=== PATIENT | female | born 1995 | race Caucasian/White ===

== ENCOUNTER 2020-01-16 09:41 | Emergency (ER) | payer SELFPAY ==
--- NOTE | 2020-01-16 09:52 | ERPHSYRPT ---
- History of Present Illness Time Seen by Provider: 01/16/20 09:51 Historian: patient, family Exam Limitations: no limitations Physician History: This is a 24-year-old white female who has had intermittent epigastric abdominal pain with associated nausea vomiting and diarrhea. She is had no fever she has no flulike symptoms. She does not have chest pain and she has no shortness of breath. The pain is worse after she eats and in the mornings. She has had no prior abdominal surgeries. She also feels bloated belching and gassy. Patient has not seen a primary care physician for this in the last month. She has had symptoms intermittently for over a month. Timing/Duration: intermittent, worse, other (Over a month) Activities at Onset: none Quality: aching, cramping Abdominal Pain Onset Location: epigastric Pain Radiation: no radiation Severity of Pain-Max: moderate Severity of Pain-Current: moderate Modifying Factors: Improves With: eating (Worsens), vomiting Associated Symptoms: nausea, vomiting Previous symptoms: same symptoms as today Allergies/Adverse Reactions: No Known Drug Allergies Allergy (Unverified 01/16/20 09:56) Travel Risk - International Travel Have you traveled outside of the country in past 3 weeks: No - Coronavirus Screening Are you exhibiting any of the following symptoms?: No Close contact with a COVID-19 positive Pt in past 14-21 Days: No - Review of Systems Constitutional: No Symptoms Eyes: No Symptoms Ears, Nose, & Throat: No Symptoms Respiratory: No Symptoms Cardiac: No Symptoms Abdominal/Gastrointestinal: Abdominal Pain (Epigastric), Nausea, Vomiting Genitourinary Symptoms: No Symptoms Musculoskeletal: No Symptoms Skin: No Symptoms Neurological: No Symptoms Psychological: No Symptoms Endocrine: No Symptoms Hematologic/Lymphatic: No Symptoms Immunological/Allergic: No Symptoms All Other Systems: Reviewed and Negative - Past Medical History Pertinent Past Medical History: No Neurological History: No Pertinent History ENT History: No Pertinent History Cardiac History: No Pertinent History Respiratory History: No Pertinent History Endocrine Medical History: No Pertinent History Musculoskeletal History: No Pertinent History GI Medical History: No Pertinent History History: No Pertinent History Psycho-Social History: No Pertinent History Female Reproductive Disorders: No Pertinent History - Nursing Vital Signs Nursing Vital Signs: Initial Vital Signs Temperature 96.9 F 01/16/20 09:46 Pulse Rate 58 L 01/16/20 09:46 Respiratory Rate 16 01/16/20 09:46 Blood Pressure 125/58 01/16/20 09:46 O2 Sat by Pulse Oximetry 99 01/16/20 09:46 Pain Scale Pain Intensity 4 - Physical Exam General Appearance: mild distress, alert, anxiety Eye Exam: PERRL/EOMI, eyes nml inspection Ears, Nose, Throat Exam: normal ENT inspection, moist mucous membranes Neck Exam: normal inspection, non-tender, supple, full range of motion Respiratory Exam: normal breath sounds, lungs clear, airway intact, No chest tenderness, No respiratory distress Cardiovascular Exam: regular rate/rhythm, normal heart sounds, normal peripheral pulses Gastrointestinal/Abdomen Exam: soft, normal bowel sounds, tenderness (Epigastric), guarding (Mild epigastric), No rebound Pelvic Exam: not done Rectal Exam: not done Back Exam: normal inspection, normal range of motion, No CVA tenderness, No vertebral tenderness Extremity Exam: normal inspection, normal range of motion, pelvis stable Neurologic Exam: alert, oriented x 3, cooperative, credit specialist II-XII nml as tested Skin Exam: normal color, warm, dry Lymphatic Exam: No adenopathy SpO2 Interpretation: normal O2 Delivery: Room Air - Course Nursing assessment & vital signs reviewed: Yes Ordered Tests: Active Orders 24 hr Category Date Time Status Cath for Specimen-Straight STAT Care 01/16/20 12:22 Active IV Insertion STAT Care 01/16/20 09:54 Active ABDOMEN AND PELVIS W/0 CONTRAS [CT] Stat Exams 01/16/20 10:43 Taken AMYLASE Stat Lab 01/16/20 10:05 Completed CBC W DIFF Stat Lab 01/16/20 10:05 Completed CMP Stat Lab 01/16/20 10:05 Completed HCG QUALITATIVE,SERUM Stat Lab 01/16/20 10:00 Completed HCG,QUALITATIVE URINE Stat Lab 01/16/20 Uncollected LIPASE Stat Lab 01/16/20 10:05 Completed Lactic Acid Stat Lab 01/16/20 09:54 Completed UA W/RFX UR CULTURE Stat Lab 01/16/20 12:19 Completed Urine Triage Profile Stat Lab 01/16/20 12:19 Received Medication Summary Discontinued Medications Generic Name Dose Route Start Last Admin Trade Name Freq PRN Reason Stop Dose Admin Famotidine 20 mg 01/16/20 09:54 01/16/20 10:03 Pepcid 20 Mg Vial IV 01/16/20 09:55 20 mg STAT ONE Administration Famotidine Confirm 01/16/20 10:00 Pepcid 20 Mg Vial Administered 01/16/20 10:01 Dose 20 mg IV .STK-MED ONE Hydromorphone HCl 0.5 mg 01/16/20 09:54 01/16/20 10:33 Hydromorphone 1 Mg/Ml Ampule IV 01/16/20 09:55 0.5 mg STAT ONE Administration Hydromorphone HCl Confirm 01/16/20 10:31 Hydromorphone 1 Mg/Ml Ampule Administered 01/16/20 10:32 Dose 1 mg .ROUTE .STK-MED ONE Hydromorphone HCl 0.5 mg 01/16/20 12:14 Hydromorphone 1 Mg/Ml Ampule IV 01/16/20 12:15 STAT ONE Sodium Chloride 1,000 mls @ 999 mls/hr 01/16/20 09:54 01/16/20 10:05 Sodium Chloride 0.9% 1000 Ml IV 01/16/20 10:54 999 mls/hr .Q1H1M STA Administration Sodium Chloride Confirm 01/16/20 10:01 Sodium Chloride 0.9% 1000 Ml Administered 01/16/20 10:02 Dose 1,000 mls @ ud .ROUTE .STK-MED ONE Sodium Chloride 500 mls @ 500 mls/hr 01/16/20 11:34 01/16/20 11:37 Sodium Chloride 0.9% 500 Ml IV 01/16/20 12:33 500 mls/hr .Q1H ONE Administration Sodium Chloride Confirm 01/16/20 11:36 Sodium Chloride 0.9% 500 Ml Administered 01/16/20 11:37 Dose 500 mls @ ud IV .STK-MED ONE Ondansetron HCl 4 mg 01/16/20 09:54 01/16/20 10:03 Zofran 4 Mg/2 Ml Vial IV 01/16/20 09:55 4 mg STAT ONE Administration Ondansetron HCl Confirm 01/16/20 10:00 Zofran 4 Mg/2 Ml Vial Administered 01/16/20 10:01 Dose 4 mg .ROUTE .STK-MED ONE Ondansetron HCl 4 mg 01/16/20 12:14 Zofran 4 Mg/2 Ml Vial IV 01/16/20 12:15 STAT ONE Promethazine HCl 12.5 mg 01/16/20 12:22 01/16/20 12:26 Phenergan 25 Mg Inj IM 01/16/20 12:23 12.5 mg STAT ONE Administration Promethazine HCl Confirm 01/16/20 12:22 Phenergan 25 Mg Inj Administered 01/16/20 12:23 Dose 25 mg .ROUTE .STK-MED ONE Lab/Rad Data: Laboratory Result Diagrams 01/16/20 10:05 01/16/20 10:05 Laboratory Results 01/16/20 01/16/20 01/16/20 Range/Units 12:19 10:05 10:05 WBC 13.9 H (4.0-10.5) K/mm3 RBC 5.42 H (4.1-5.4) M/mm3 Hgb 16.3 H (12.0-16.0) gm/dl Hct 49.1 H (35-47) % MCV 90.6 (78-100) fl MCH 30.1 (26-32) pg MCHC 33.2 (32-36) g/dl RDW 13.2 (11.5-14.0) % Plt Count 237 (150-450) K/mm3 MPV 10.2 (7.5-11.0) fl Gran % 84.2 H (36.0-66.0) % Eos # (Auto) 0.05 (0-0.5) Absolute Lymphs (auto) 1.49 (1.0-4.6) Absolute Monos (auto) 0.63 (0.0-1.3) Lymphocytes % 10.7 L (24.0-44.0) % Monocytes % 4.5 (0.0-12.0) % Eosinophils % 0.4 (0.00-5.0) % Basophils % 0.2 (0.0-0.4) % Absolute Granulocytes 11.73 H (1.4-6.9) Basophils # 0.03 (0-0.4) Sodium 139 (137-145) mmol/L Potassium 3.7 (3.5-5.1) mmol/L Chloride 108 H (98-107) mmol/L Carbon Dioxide 23 (22-30) mmol/L Anion Gap 11.7 (5-15) MEQ/L BUN 12 (7-17) mg/dL Creatinine 0.72 (0.52-1.04) mg/dL Estimated GFR > 60.0 ML/MIN Glucose 145 H (74-106) mg/dL Lactic Acid (0.4-2.0) Calcium 9.7 (8.4-10.2) mg/dL Total Bilirubin 1.90 H (0.2-1.3) mg/dL AST 19 (14-36) U/L ALT 15 (0-35) U/L Alkaline Phosphatase 93 (38-126) U/L Serum Total Protein 7.8 (6.3-8.2) g/dL Albumin 4.6 (3.5-5.0) g/dL Amylase 82 (30-110) U/L Lipase 53 (23-300) U/L Serum , Qual (Negative) Urine Color GILL (YELLOW) Urine Appearance SLIGHTLY CLOUDY (CLEAR) Urine pH 7.0 (5-6) Ur Specific [place] 1.028 (1.005-1.025) Urine Protein 100 (Negative) Urine Ketones SMALL (NEGATIVE) Urine Blood NEGATIVE (0-5) [place] Urine Nitrite NEGATIVE (NEGATIVE) Urine Bilirubin NEGATIVE (NEGATIVE) Urine Urobilinogen 2 (0-1) mg/dL Ur Leukocyte Esterase NEGATIVE (NEGATIVE) Urine WBC (Auto) 3-5 (0-5) /HPF Urine RBC (Auto) NONE (0-2) /HPF U Hyaline Cast (Auto) 3-5 (0-2) /LPF U Epithel Cells (Auto) RARE (FEW) /HPF Urine Bacteria (Auto) RARE (NEGATIVE) /HPF Urine Mucus (Auto) MANY (NEGATIVE) /HPF Urine Culture Reflexed NO (NO) Urine Glucose NEGATIVE (NEGATIVE) mg/dL 01/16/20 01/16/20 Range/Units 10:00 09:54 WBC (4.0-10.5) K/mm3 RBC (4.1-5.4) M/mm3 Hgb (12.0-16.0) gm/dl Hct (35-47) % MCV (78-100) fl MCH (26-32) pg MCHC (32-36) g/dl RDW (11.5-14.0) % Plt Count (150-450) K/mm3 MPV (7.5-11.0) fl Gran % (36.0-66.0) % Eos # (Auto) (0-0.5) Absolute Lymphs (auto) (1.0-4.6) Absolute Monos (auto) (0.0-1.3) Lymphocytes % (24.0-44.0) % Monocytes % (0.0-12.0) % Eosinophils % (0.00-5.0) % Basophils % (0.0-0.4) % Absolute Granulocytes (1.4-6.9) Basophils # (0-0.4) Sodium (137-145) mmol/L Potassium (3.5-5.1) mmol/L Chloride (98-107) mmol/L Carbon Dioxide (22-30) mmol/L Anion Gap (5-15) MEQ/L BUN (7-17) mg/dL Creatinine (0.52-1.04) mg/dL Estimated GFR ML/MIN Glucose (74-106) mg/dL Lactic Acid 1.8 (0.4-2.0) Calcium (8.4-10.2) mg/dL Total Bilirubin (0.2-1.3) mg/dL AST (14-36) U/L ALT (0-35) U/L Alkaline Phosphatase (38-126) U/L Serum Total Protein (6.3-8.2) g/dL Albumin (3.5-5.0) g/dL Amylase (30-110) U/L Lipase (23-300) U/L Serum , Qual NEGATIVE (Negative) Urine Color (YELLOW) Urine Appearance (CLEAR) Urine pH (5-6) Ur Specific [place] (1.005-1.025) Urine Protein (Negative) Urine Ketones (NEGATIVE) Urine Blood (0-5) [place] Urine Nitrite (NEGATIVE) Urine Bilirubin (NEGATIVE) Urine Urobilinogen (0-1) mg/dL Ur Leukocyte Esterase (NEGATIVE) Urine WBC (Auto) (0-5) /HPF Urine RBC (Auto) (0-2) /HPF U Hyaline Cast (Auto) (0-2) /LPF U Epithel Cells (Auto) (FEW) /HPF Urine Bacteria (Auto) (NEGATIVE) /HPF Urine Mucus (Auto) (NEGATIVE) /HPF Urine Culture Reflexed (NO) Urine Glucose (NEGATIVE) mg/dL - Progress Progress: improved, pain not gone completely, re-examined Progress Note: 01/16/20 11:54 CAT scan of the abdomen pelvis reveals a few faint punctate densities developing within the right kidney. No sizable calculus or obstructive uropathy identified. The appendix is normal and there is no cholelithiasis. Counseled pt/family regarding: lab results, diagnosis, need for follow-up, rad results - Departure Departure Disposition: Home Clinical Impression: Abdominal pain, Nausea & vomiting Condition: Stable Critical Care Time: No Referrals: DOCTOR,NO FAMILY [Primary Care Provider] - Additional Instructions: Drink plenty of clear liquids prior to advancing your diet. Avoid fatty greasy spicy foods. Follow-up with a primary care physician to obtain an ultrasound and other further management. Please review the list of providers we have provided you. Prescriptions: Ondansetron ODT 4 MG [Zofran Odt 4 mg] 4 mg PO Q6H PRN PRN #10 tab.rapdis PRN Reason: Vomiting Hydrocodone/APAP 5-325 Tab^^^ [[place] 5-325 Tablet^^^] 1 tab PO Q8H PRN PRN #6 tablet MDD 3 PRN Reason: Pain Famotidine 20 mg [Pepcid 20 MG] 20 mg PO DAILY #10 tablet
[2020-01-16] MEDS ORDERED: Zofran 4 MG/2 ML VIAL IV ONE ×2 (09:54→12:14)
[2020-01-16] MEDS ORDERED: Sodium Chloride 0.9% 1000 ML 1,000 ML IV STA (09:54)
[2020-01-16] MEDS ORDERED: Pepcid 20 MG VIAL IV ONE ×2 (09:54→10:00)
[2020-01-16] MEDS ORDERED: Hydromorphone 1 mg/ml Ampule IV ONE ×2 (09:54→12:14)
[2020-01-16] MEDS ORDERED: Zofran 4 MG/2 ML VIAL ONE (10:00)
[2020-01-16] MEDS ORDERED: Sodium Chloride 0.9% 1000 ML 1,000 ML ONE (10:01)
[2020-01-16 10:14] LABS: Absolute Neutrophil Ct (ANC) 11.73 (1.4-6.9); BASOPHIL % 0.2 % (0.0-0.4); Basophil (Absolute #) 0.03 (0-0.4); Eosinophil % 0.4 % (0.00-5.0); Eosinophil (Absolute #) 0.05 (0-0.5); Hematocrit 49.1 % (35-47); Hemoglobin 16.3 gm/dl (12.0-16.0); Lymphocyte (Absolute #) 1.49 (1.0-4.6); Lymphocytes % 10.7 % (24.0-44.0); Mean Cell Volume 90.6 fl (78-100); Mean Corpuscular Hemoglobin 30.1 pg (26-32); Mean Corpuscular Hgb Concent. 33.2 g/dl (32-36); Mean Platelet Volume 10.2 fl (7.5-11.0); Monocyte (Absolute #) 0.63 (0.0-1.3); Monocytes % 4.5 % (0.0-12.0); Neutrophil % 84.2 % (36.0-66.0); Platelet Count 237 K/mm3 (150-450); Red Blood Count 5.42 M/mm3 (4.1-5.4); Red Cell Distribution Width 13.2 % (11.5-14.0); White Blood Count 13.9 K/mm3 (4.0-10.5)
[2020-01-16 10:23] LABS: ALBUMIN 4.6 g/dL (3.5-5.0); ALKALINE PHOSPHATASE 93 U/L (38-126); AMYLASE 82 U/L (30-110); ANION GAP 11.7 MEQ/L (5-15); BLOOD UREA NITROGEN 12 mg/dL (7-17); CHLORIDE 108 mmol/L (98-107); Calcium 9.7 mg/dL (8.4-10.2); Carbon Dioxide 23 mmol/L (22-30); Creatinine 1 0.72 mg/dL (0.52-1.04); Glucose 145 mg/dL (74-106); LIPASE 53 U/L (23-300); Potassium 3.7 mmol/L (3.5-5.1); SGOT/AST 19 U/L (14-36); SGPT/ALT 15 U/L (0-35); SODIUM 139 mmol/L (137-145); Total Protein 7.8 g/dL (6.3-8.2)
[2020-01-16] MEDS ORDERED: Hydromorphone 1 mg/ml Ampule ONE (10:31)
[2020-01-16] MEDS ORDERED: Sodium Chloride 0.9% 500 ML 500 ML IV ONE ×2 (11:34→11:36)
[2020-01-16] MEDS ORDERED: Phenergan 25 MG INJ IM ONE (12:22)
[2020-01-16] MEDS ORDERED: Phenergan 25 MG INJ ONE (12:22)
[2020-01-16 13:30] LABS: Appearance SLIGHTLY CLOUDY (CLEAR); Bacteria RARE /HPF (NEGATIVE); Bilirubin NEGATIVE (NEGATIVE); Blood NEGATIVE Ery/ul (0-5); Epithelial Cells RARE /HPF (FEW); Glucose NEGATIVE (NEGATIVE); Ketones SMALL (NEGATIVE); Leukocyte Esterase NEGATIVE (NEGATIVE); Mucus MANY /HPF (NEGATIVE); Nitrite NEGATIVE (NEGATIVE); Protein,Urine Dip 100 (Negative); Specific Gravity 1.028 (1.005-1.025); Urobilinogen 2 mg/dL (0-1)
[2020-01-16 13:37] LABS: Amphetamine,Urine NEGATIVE (NEGATIVE); Barbiturate,Urine NEGATIVE (NEGATIVE); Benzodiazepine,Urine NEGATIVE (NEGATIVE); Cocaine,Urine NEGATIVE (NEGATIVE); Methadone,Urine NEGATIVE (NEGATIVE); Opiate,Urine POSITIVE (NEGATIVE); PCP,Urine NEGATIVE (NEGATIVE); THC,Urine POSITIVE (NEGATIVE)
[2020-01-16 14:14] VITALS: BP 102/59; PULSE 54; O2SAT 99
--- NOTE | 2020-01-16 21:58 | XRAY ---
Indication: Epigastric and right lower quadrant pain. Multiple contiguous axial images obtained through the abdomen and pelvis without contrast as ordered. Comparison: None. Lung bases are clear. Heart is not enlarged.. Noncontrasted stomach and bowel loops appear nonobstructed. Normal appendix. IUD and tampon in situ. No free fluid/air. Remaining liver, gallbladder, pancreas, spleen, adrenal glands, kidneys, ureters, bladder, uterus, and aorta appear unremarkable for noncontrasted exam. Osseous structures intact again with mild lumbosacral junction degenerative changes. Impression: CT abdomen/pelvis without contrast exam is negative. Comment: Preliminary interpretation was made by C. No critical discrepancy.
== END 2020-01-16 14:24 | disposition home or self-care (01) ==
LOC: ED 09:41
DX: R10.9 Unspecified abdominal pain (principal); R11.2 Nausea with vomiting, unspecified
CPT/HCPCS: 36000; 36415; 74176; 80053; 80307; 81001; 81025; 82150; 83605; 83690; 85025; 96360; 96361; 96372; 96374; 96375; 99285; P9612; J1170; J2405; J2550

== ENCOUNTER 2021-01-22 13:19 | Observation (INO) | payer SELFPAY ==
[2021-01-22] MEDS ORDERED: MORPHINE SULFATE 2 MG INJ IV ONE (13:46)
[2021-01-22] MEDS ORDERED: Zofran 4 MG/2 ML VIAL IV ONE ×2 (13:46→22:02)
--- NOTE | 2021-01-22 13:55 | ERPHSYRPT ---
- History of Present Illness Time Seen by Provider: 01/22/21 13:40 Historian: patient Exam Limitations: no limitations Patient Subjective Stated Complaint: abd pain, vomiting onset Triage Nursing Assessment: pt to ED c/o abd pain and emesis since . pt was admitted to [facility] on Friday and DC home yesterday. was dx with stomach virus and UTI. pt states she felt better on DC home but has not been able to tolerate PO this morning. rates 10/10 cramping pain in center of abd that does not radiate. Physician History: Patient is a 25-year-old female presents to our ED for evaluation of abdominal pain nausea and vomiting. Symptoms started approximately 4 days ago. Patient went to [facility] on Friday with the same. Patient was admitted. She was diagnosed with a UTI and a stomach virus. Patient is currently on antibiotics but is not aware of the antibiotic she is currently taking. Patient states that she felt well after hospital discharge. But her pain recurred. Pain currently rated 10 out of 10. Pain is primarily localized to the periumbilical/right lower quadrant region. Symptoms are constant. Symptoms are moderate in intensity. No specific worsening improving factors. Patient advised that she has a IUD. Patient wondering if her IUD is contributing to her symptoms. Patient voices no other complaints or concerns at this time. Sister at bedside. Timing/Duration: day(s) (4 days) Activities at Onset: none Quality: aching Abdominal Pain Onset Location: periumbilical Pain Radiation: no radiation Severity of Pain-Max: moderate Severity of Pain-Current: mild Modifying Factors: Improves With: palpation Associated Symptoms: nausea, vomiting Previous symptoms: same symptoms as today Allergies/Adverse Reactions: No Known Drug Allergies Allergy (Verified 01/22/21 13:38) Home Medications: Cefdinir [Omnicef] 300 mg PO BID 01/22/21 [History] Hx Tetanus, Diphtheria Vaccination/Date Given: Yes Hx Influenza Vaccination/Date Given: Yes Hx Pneumococcal Vaccination/Date Given: No Immunizations Up to Date: Yes Travel Risk - International Travel Have you traveled outside of the country in past 3 weeks: No - Coronavirus Screening Are you exhibiting any of the following symptoms?: Yes Symptoms: Vomiting/Diarrhea Close contact with a COVID-19 positive Pt in past 14-21 Days: No - Vaccine Status Have you recieved a Covid-19 vaccination: No - Review of Systems Constitutional: No Symptoms, No Fever, No Chills Eyes: No Symptoms Ears, Nose, & Throat: No Symptoms Respiratory: No Symptoms, No Cough, No Dyspnea Cardiac: No Symptoms, No Chest Pain, No Edema, No Syncope Abdominal/Gastrointestinal: No Symptoms, No Abdominal Pain, No Nausea, No Vomiting, No Diarrhea Genitourinary Symptoms: No Symptoms, No Dysuria Musculoskeletal: No Symptoms, No Back Pain, No Neck Pain Skin: No Symptoms, No Rash Neurological: No Symptoms, No Dizziness, No Focal Weakness, No Sensory Changes Psychological: No Symptoms Endocrine: No Symptoms Hematologic/Lymphatic: No Symptoms Immunological/Allergic: No Symptoms All Other Systems: Reviewed and Negative - Past Medical History Pertinent Past Medical History: No Neurological History: No Pertinent History ENT History: No Pertinent History Cardiac History: No Pertinent History Respiratory History: No Pertinent History Endocrine Medical History: No Pertinent History Musculoskeletal History: No Pertinent History GI Medical History: No Pertinent History History: No Pertinent History Psycho-Social History: No Pertinent History Female Reproductive Disorders: No Pertinent History - Past Surgical History Past Surgical History: Yes Gastrointestinal: Cholecystectomy - Social History Smoking Status: Former smoker How long have you smoked: 5 years Exposure to second hand smoke: Yes Drug Use: marijuana Patient Lives Alone: No - Female History Hx Last Menstrual Period: last week Hx Now: No (IUD) - Nursing Vital Signs Nursing Vital Signs: Initial Vital Signs Temperature 98.0 F 01/22/21 13:31 Pulse Rate 67 01/22/21 13:31 Respiratory Rate 18 01/22/21 13:31 Blood Pressure 135/82 01/22/21 13:31 O2 Sat by Pulse Oximetry 98 01/22/21 13:31 Pain Scale Pain Intensity 8 - Physical Exam General Appearance: no apparent distress, alert Eye Exam: PERRL/EOMI, eyes nml inspection Ears, Nose, Throat Exam: normal ENT inspection, pharynx normal, moist mucous membranes Neck Exam: normal inspection, non-tender, supple, full range of motion Respiratory Exam: normal breath sounds, lungs clear, No respiratory distress Cardiovascular Exam: regular rate/rhythm, normal heart sounds Gastrointestinal/Abdomen Exam: soft, No tenderness, No mass Back Exam: normal inspection, normal range of motion, No CVA tenderness, No vertebral tenderness Extremity Exam: normal inspection, normal range of motion, pelvis stable Neurologic Exam: alert, oriented x 3, cooperative, normal mood/affect, No motor deficits Skin Exam: normal color, warm, dry SpO2 Interpretation: normal O2 Delivery: Room Air - Course Nursing assessment & vital signs reviewed: Yes - CT Exams Abdomen/Pelvis CT Interpretation: Tele-radiologist Report (I see no acute abdominal or pelvic abnormality. The patient is status post cholecystectomy. There is an IUD in the upper uterine segment representing no change.) Ordered Tests: Active Orders 24 hr Category Date Time Status IV Insertion STAT Care 01/22/21 13:46 Active ABDOMEN AND PELVIS W CONTRAST [CT] Stat Exams 01/22/21 13:47 Completed CBC W DIFF Stat Lab 01/22/21 13:46 Completed CMP Stat Lab 01/22/21 13:55 Completed HCG,QUALITATIVE URINE Stat Lab 01/22/21 13:46 Completed LIPASE Stat Lab 01/22/21 13:55 Completed TROPONIN Q3H Lab 01/22/21 13:55 Completed TROPONIN Q3H Lab 01/22/21 16:53 Completed TROPONIN Q3H Lab 01/22/21 19:43 Completed TROPONIN Q3H Lab 01/22/21 23:00 Ordered TROPONIN Q3H Lab 01/23/21 02:00 Ordered UA W/RFX UR CULTURE Stat Lab 01/22/21 13:59 Completed Urine Triage Profile Stat Lab 01/22/21 13:59 Completed Transfer Order Routine Transfer 01/22/21 Ordered Medication Summary Generic Name Dose Route Start Last Admin Trade Name Freq PRN Reason Stop Dose Admin Sodium Chloride 1,000 mls @ 100 mls/hr 01/22/21 14:00 01/22/21 14:38 Sodium Chloride 0.9% 1000 Ml IV 02/21/21 13:59 100 mls/hr .Q10H VIKKI Administration Discontinued Medications Generic Name Dose Route Start Last Admin Trade Name Freq PRN Reason Stop Dose Admin Hydromorphone HCl 0.5 mg 01/22/21 19:36 01/22/21 19:42 Hydromorphone 1 Mg/Ml Injection IV 01/22/21 19:37 0.5 mg STAT ONE Administration Hydromorphone HCl Confirm 01/22/21 19:40 Hydromorphone 1 Mg/Ml Injection Administered 01/22/21 19:41 Dose 1 mg .ROUTE .STK-MED ONE Morphine Sulfate 2 mg 01/22/21 13:46 01/22/21 14:37 Morphine Sulfate 2 Mg Inj IV 01/22/21 13:47 2 mg STAT ONE Administration Morphine Sulfate Confirm 01/22/21 14:33 Morphine Sulfate 2 Mg Inj Administered 01/22/21 14:34 Dose 2 mg .ROUTE .STK-MED ONE Ondansetron HCl 4 mg 01/22/21 13:46 01/22/21 14:37 Zofran 4 Mg/2 Ml Vial IV 01/22/21 13:47 4 mg STAT ONE Administration Ondansetron HCl Confirm 01/22/21 14:33 Zofran 4 Mg/2 Ml Vial Administered 01/22/21 14:34 Dose 4 mg .ROUTE .STK-MED ONE Lab/Rad Data: Laboratory Result Diagrams 01/22/21 13:46 01/22/21 13:55 Laboratory Results 01/22/21 01/22/21 01/22/21 Range/Units 20:37 19:43 16:53 WBC (4.0-10.5) K/mm3 RBC (4.1-5.4) M/mm3 Hgb (12.0-16.0) gm/dl Hct (35-47) % MCV (78-100) fl MCH (26-32) pg MCHC (32-36) g/dl RDW (11.5-14.0) % Plt Count (150-450) K/mm3 MPV (7.5-11.0) fl Gran % (36.0-66.0) % Eos # (Auto) (0-0.5) Absolute Lymphs (auto) (1.0-4.6) Absolute Monos (auto) (0.0-1.3) Lymphocytes % (24.0-44.0) % Monocytes % (0.0-12.0) % Eosinophils % (0.00-5.0) % Basophils % (0.0-0.4) % Absolute Granulocytes (1.4-6.9) Basophils # (0-0.4) Sodium (137-145) mmol/L Potassium (3.5-5.1) mmol/L Chloride (98-107) mmol/L Carbon Dioxide (22-30) mmol/L Anion Gap (5-15) MEQ/L BUN (7-17) mg/dL Creatinine (0.52-1.04) mg/dL Estimated GFR ML/MIN Glucose (74-106) mg/dL Calcium (8.4-10.2) mg/dL Total Bilirubin (0.2-1.3) mg/dL AST (14-36) U/L ALT (0-35) U/L Alkaline Phosphatase (38-126) U/L Troponin I < 0.012 < 0.012 (0.000-0.034) ng/mL Serum Total Protein (6.3-8.2) g/dL Albumin (3.5-5.0) g/dL Lipase (23-300) U/L Urine Color (YELLOW) Urine Appearance (CLEAR) Urine pH (5-6) Ur Specific [place] (1.005-1.025) Urine Protein (Negative) Urine Ketones (NEGATIVE) Urine Blood (0-5) Toan/ul Urine Nitrite (NEGATIVE) Urine Bilirubin (NEGATIVE) Urine Urobilinogen (0-1) mg/dL Ur Leukocyte Esterase (NEGATIVE) Urine WBC (Auto) (0-5) /HPF Urine RBC (Auto) (0-2) /HPF U Epithel Cells (Auto) (FEW) /HPF Urine Bacteria (Auto) (NEGATIVE) /HPF Urine Culture Reflexed (NO) Urine Glucose (NEGATIVE) mg/dL Urine HCG, Qual (Negative) Urine Opiates Level (NEGATIVE) Ur Methadone (NEGATIVE) Urine Barbiturates (NEGATIVE) Ur Phencyclidine (PCP) (NEGATIVE) Urine Amphetamine (NEGATIVE) U Benzodiazepine Level (NEGATIVE) Urine Cocaine (NEGATIVE) Urine Marijuana (THC) (NEGATIVE) SARS-CoV-2 (PCR) NEGATIVE (NEGATIVE) 01/22/21 01/22/21 01/22/21 Range/Units 13:59 13:59 13:55 WBC (4.0-10.5) K/mm3 RBC (4.1-5.4) M/mm3 Hgb (12.0-16.0) gm/dl Hct (35-47) % MCV (78-100) fl MCH (26-32) pg MCHC (32-36) g/dl RDW (11.5-14.0) % Plt Count (150-450) K/mm3 MPV (7.5-11.0) fl Gran % (36.0-66.0) % Eos # (Auto) (0-0.5) Absolute Lymphs (auto) (1.0-4.6) Absolute Monos (auto) (0.0-1.3) Lymphocytes % (24.0-44.0) % Monocytes % (0.0-12.0) % Eosinophils % (0.00-5.0) % Basophils % (0.0-0.4) % Absolute Granulocytes (1.4-6.9) Basophils # (0-0.4) Sodium (137-145) mmol/L Potassium (3.5-5.1) mmol/L Chloride (98-107) mmol/L Carbon Dioxide (22-30) mmol/L Anion Gap (5-15) MEQ/L BUN (7-17) mg/dL Creatinine (0.52-1.04) mg/dL Estimated GFR ML/MIN Glucose (74-106) mg/dL Calcium (8.4-10.2) mg/dL Total Bilirubin (0.2-1.3) mg/dL AST (14-36) U/L ALT (0-35) U/L Alkaline Phosphatase (38-126) U/L Troponin I < 0.012 (0.000-0.034) ng/mL Serum Total Protein (6.3-8.2) g/dL Albumin (3.5-5.0) g/dL Lipase (23-300) U/L Urine Color YELLOW (YELLOW) Urine Appearance CLOUDY (CLEAR) Urine pH 8.0 (5-6) Ur Specific [place] 1.008 (1.005-1.025) Urine Protein NEGATIVE (Negative) Urine Ketones TRACE (NEGATIVE) Urine Blood NEGATIVE (0-5) Toan/ul Urine Nitrite NEGATIVE (NEGATIVE) Urine Bilirubin NEGATIVE (NEGATIVE) Urine Urobilinogen 2 (0-1) mg/dL Ur Leukocyte Esterase NEGATIVE (NEGATIVE) Urine WBC (Auto) NONE (0-5) /HPF Urine RBC (Auto) NONE (0-2) /HPF U Epithel Cells (Auto) RARE (FEW) /HPF Urine Bacteria (Auto) RARE (NEGATIVE) /HPF Urine Culture Reflexed NO (NO) Urine Glucose NEGATIVE (NEGATIVE) mg/dL Urine HCG, Qual (Negative) Urine Opiates Level NEGATIVE (NEGATIVE) Ur Methadone NEGATIVE (NEGATIVE) Urine Barbiturates NEGATIVE (NEGATIVE) Ur Phencyclidine (PCP) NEGATIVE (NEGATIVE) Urine Amphetamine NEGATIVE (NEGATIVE) U Benzodiazepine Level NEGATIVE (NEGATIVE) Urine Cocaine NEGATIVE (NEGATIVE) Urine Marijuana (THC) POSITIVE (NEGATIVE) SARS-CoV-2 (PCR) (NEGATIVE) 01/22/21 01/22/21 01/22/21 Range/Units 13:55 13:46 13:46 WBC 9.4 (4.0-10.5) K/mm3 RBC 4.70 (4.1-5.4) M/mm3 Hgb 14.2 (12.0-16.0) gm/dl Hct 42.3 (35-47) % MCV 90.0 (78-100) fl MCH 30.2 (26-32) pg MCHC 33.6 (32-36) g/dl RDW 12.6 (11.5-14.0) % Plt Count 209 (150-450) K/mm3 MPV 10.3 (7.5-11.0) fl Gran % 70.9 H (36.0-66.0) % Eos # (Auto) 0 (0-0.5) Absolute Lymphs (auto) 1.86 (1.0-4.6) Absolute Monos (auto) 0.85 (0.0-1.3) Lymphocytes % 19.9 L (24.0-44.0) % Monocytes % 9.1 (0.0-12.0) % Eosinophils % 0.0 (0.00-5.0) % Basophils % 0.1 (0.0-0.4) % Absolute Granulocytes 6.64 (1.4-6.9) Basophils # 0.01 (0-0.4) Sodium 136 L (137-145) mmol/L Potassium 3.7 (3.5-5.1) mmol/L Chloride 102 (98-107) mmol/L Carbon Dioxide 23 (22-30) mmol/L Anion Gap 15.2 H (5-15) MEQ/L BUN 8 (7-17) mg/dL Creatinine 0.53 (0.52-1.04) mg/dL Estimated GFR > 60.0 ML/MIN Glucose 93 (74-106) mg/dL Calcium 9.2 (8.4-10.2) mg/dL Total Bilirubin 3.60 H (0.2-1.3) mg/dL AST 43 H (14-36) U/L ALT 36 H (0-35) U/L Alkaline Phosphatase 61 (38-126) U/L Troponin I (0.000-0.034) ng/mL Serum Total Protein 7.0 (6.3-8.2) g/dL Albumin 4.2 (3.5-5.0) g/dL Lipase 61 (23-300) U/L Urine Color (YELLOW) Urine Appearance (CLEAR) Urine pH (5-6) Ur Specific [place] (1.005-1.025) Urine Protein (Negative) Urine Ketones (NEGATIVE) Urine Blood (0-5) Toan/ul Urine Nitrite (NEGATIVE) Urine Bilirubin (NEGATIVE) Urine Urobilinogen (0-1) mg/dL Ur Leukocyte Esterase (NEGATIVE) Urine WBC (Auto) (0-5) /HPF Urine RBC (Auto) (0-2) /HPF U Epithel Cells (Auto) (FEW) /HPF Urine Bacteria (Auto) (NEGATIVE) /HPF Urine Culture Reflexed (NO) Urine Glucose (NEGATIVE) mg/dL Urine HCG, Qual NEGATIVE (Negative) Urine Opiates Level (NEGATIVE) Ur Methadone (NEGATIVE) Urine Barbiturates (NEGATIVE) Ur Phencyclidine (PCP) (NEGATIVE) Urine Amphetamine (NEGATIVE) U Benzodiazepine Level (NEGATIVE) Urine Cocaine (NEGATIVE) Urine Marijuana (THC) (NEGATIVE) SARS-CoV-2 (PCR) (NEGATIVE) - Progress Progress: improved Progress Note: Case cussed with on-call general surgery who advised ERCP. Case discussed with Dr. Padilla GI physician at [place] who advised admission to our hospital for an MRCP and also to obtain a hepatitis panel. Hepatitis panel was ordered. Case discussed with Dr. Clayton who accepts admission to observation. We contacted our radiology service and they confirmed that an MRCP can be performed tomorrow. Plan of care discussed with patient. She agrees to admission [facility] for further evaluation and treatment. 01/22/21 19:48 Covid test negative 01/22/21 21:45 Counseled pt/family regarding: lab results, diagnosis, need for follow-up, rad results - Departure Departure Disposition: Observation Clinical Impression: Total bilirubin, elevated, Abdominal pain, Marijuana use Condition: Stable Critical Care Time: No Referrals: DOCTOR,NO FAMILY [Primary Care Provider] -
[2021-01-22] MEDS ORDERED: Sodium Chloride 0.9% 1000 ML 1,000 ML IV SCH (14:00)
[2021-01-22 14:09] LABS: Absolute Neutrophil Ct (ANC) 6.64 (1.4-6.9); BASOPHIL % 0.1 % (0.0-0.4); Basophil (Absolute #) 0.01 (0-0.4); Eosinophil (Absolute #) 0 (0-0.5); Hematocrit 42.3 % (35-47); Hemoglobin 14.2 gm/dl (12.0-16.0); Lymphocyte (Absolute #) 1.86 (1.0-4.6); Lymphocytes % 19.9 % (24.0-44.0); Mean Corpuscular Hemoglobin 30.2 pg (26-32); Mean Corpuscular Hgb Concent. 33.6 g/dl (32-36); Mean Platelet Volume 10.3 fl (7.5-11.0); Monocyte (Absolute #) 0.85 (0.0-1.3); Monocytes % 9.1 % (0.0-12.0); Neutrophil % 70.9 % (36.0-66.0); Platelet Count 209 K/mm3 (150-450); Red Cell Distribution Width 12.6 % (11.5-14.0); White Blood Count 9.4 K/mm3 (4.0-10.5)
[2021-01-22 14:21] LABS: ALBUMIN 4.2 g/dL (3.5-5.0); ALKALINE PHOSPHATASE 61 U/L (38-126); ANION GAP 15.2 MEQ/L (5-15); BLOOD UREA NITROGEN 8 mg/dL (7-17); CHLORIDE 102 mmol/L (98-107); Calcium 9.2 mg/dL (8.4-10.2); Carbon Dioxide 23 mmol/L (22-30); Creatinine 1 0.53 mg/dL (0.52-1.04); EST GLOMERULAR FILTRATION RATE > 60.0 ML/MIN; Glucose 93 mg/dL (74-106); LIPASE 61 U/L (23-300); Potassium 3.7 mmol/L (3.5-5.1); SGOT/AST 43 U/L (14-36); SGPT/ALT 36 U/L (0-35); SODIUM 136 mmol/L (137-145)
[2021-01-22 14:25] LABS: Appearance CLOUDY (CLEAR); Bacteria RARE /HPF (NEGATIVE); Bilirubin NEGATIVE (NEGATIVE); Blood NEGATIVE Ery/ul (0-5); Epithelial Cells RARE /HPF (FEW); Glucose NEGATIVE (NEGATIVE); Ketones TRACE (NEGATIVE); Leukocyte Esterase NEGATIVE (NEGATIVE); Nitrite NEGATIVE (NEGATIVE); Protein,Urine Dip NEGATIVE (Negative); Specific Gravity 1.008 (1.005-1.025); Urobilinogen 2 mg/dL (0-1)
[2021-01-22 14:27] LABS: Amphetamine,Urine NEGATIVE (NEGATIVE); Barbiturate,Urine NEGATIVE (NEGATIVE); Benzodiazepine,Urine NEGATIVE (NEGATIVE); Cocaine,Urine NEGATIVE (NEGATIVE); Methadone,Urine NEGATIVE (NEGATIVE); Opiate,Urine NEGATIVE (NEGATIVE); PCP,Urine NEGATIVE (NEGATIVE); THC,Urine POSITIVE (NEGATIVE)
[2021-01-22] MEDS ORDERED: MORPHINE SULFATE 2 MG INJ ONE (14:33)
[2021-01-22] MEDS ORDERED: Zofran 4 MG/2 ML VIAL ONE ×2 (14:33→22:02)
[2021-01-22] MEDS ORDERED: Sodium Chloride 0.9% 1000 ML 1,000 ML ONE (14:34)
--- NOTE | 2021-01-22 17:39 | XRAY ---
Exam: CT of the abdomen and pelvis with IV contrast from 01/22/2021. CTDI: 4.81 mGy Comparison: CT of the abdomen and pelvis without IV contrast from 01/16/2020. Indication: 25-year-old female with lower abdominal pain for 5 days with nausea and vomiting; history of cholecystectomy. Technique: Post-IV contrast axial images were obtained through the abdomen and pelvis during automated injection of 80 cc of Isovue-370 contrast material. Reconstructed coronal and sagittal images were created and reviewed. Findings: The lung bases appear clear. The transverse heart size is normal. The liver is of normal size. The hepatic veins are unopacified on the portal venous phase images. This fills in on the delay images. No hepatomegaly or biliary duct distention is seen. Surgical clips consistent with prior cholecystectomy are noted. The spleen enhances homogeneously and appears of normal size without mass. The pancreas and adrenal glands appear normal. The kidneys appear of normal size and reveal no mass, hydronephrosis, or renal calculi. Both kidneys function on delay images. Portions of both ureters are visualized which appear unremarkable. The abdominal aorta appears of normal diameter. No abnormal retroperitoneal lymphadenopathy is seen. There is no free intraperitoneal air or bowel containing ventral hernia. The bowel appears nonobstructed. A mild amount of fluid is seen within the stomach lumen. No bowel wall thickening is seen. A portion of the appendix is seen which appears unremarkable. A small amount of high attenuation density is seen within the cecum which could relate to medication. The uterus is anteflexed and contains an IUD within the upper uterine segment. This is unchanged. The urinary bladder is only partially filled. No gross abnormality is seen. No abnormal pelvic lymph nodes or pelvic adnexal masses are seen. I see no free intraperitoneal fluid within the cul-de-sac. There are several calcified phleboliths within the lower pelvis on each side of midline. The femoral regions appear unremarkable. The skeleton reveals no acute fracture or aggressive bone lesion. Impression: 1. I see no acute abdominal or pelvic abnormality. 2. The patient is status post cholecystectomy. I also note an IUD within the upper uterine segment representing no change.
[2021-01-22] MEDS ORDERED: Hydromorphone 1 mg/ml Injection IV ONE (19:36)
[2021-01-22] MEDS ORDERED: Hydromorphone 1 mg/ml Injection ONE (19:40)
[2021-01-22] MEDS ORDERED: Zofran 4 MG/2 ML VIAL IV PRN (22:37)
[2021-01-22] MEDS: Sodium Chloride 0.9% 1000 ML 1,000 ML IV SCH (22:49)
[2021-01-22] MEDS: Hydromorphone 1 mg/ml Injection IV PRN (23:26)
[2021-01-23 02:55] LABS: BASOPHIL % 0.2 % (0.0-0.4); Basophil (Absolute #) 0.02 (0-0.4); Eosinophil % 0.2 % (0.00-5.0); Eosinophil (Absolute #) 0.02 (0-0.5); Hematocrit 38.6 % (35-47); Hemoglobin 12.7 gm/dl (12.0-16.0); Lymphocyte (Absolute #) 2.14 (1.0-4.6); Lymphocytes % 25.2 % (24.0-44.0); Mean Cell Volume 91.9 fl (78-100); Mean Corpuscular Hemoglobin 30.2 pg (26-32); Mean Corpuscular Hgb Concent. 32.9 g/dl (32-36); Mean Platelet Volume 10.1 fl (7.5-11.0); Monocyte (Absolute #) 0.81 (0.0-1.3); Monocytes % 9.5 % (0.0-12.0); Neutrophil % 64.9 % (36.0-66.0); Platelet Count 181 K/mm3 (150-450); Red Cell Distribution Width 12.4 % (11.5-14.0); White Blood Count 8.5 K/mm3 (4.0-10.5)
[2021-01-23] MEDS: Hydromorphone 1 mg/ml Injection IV PRN ×5 (03:26→20:15)
[2021-01-23 03:32] LABS: ALBUMIN 3.3 g/dL (3.5-5.0); ALKALINE PHOSPHATASE 52 U/L (38-126); ANION GAP 10.9 MEQ/L (5-15); BLOOD UREA NITROGEN 9 mg/dL (7-17); CHLORIDE 106 mmol/L (98-107); Calcium 8.6 mg/dL (8.4-10.2); Carbon Dioxide 24 mmol/L (22-30); Creatinine 1 0.59 mg/dL (0.52-1.04); EST GLOMERULAR FILTRATION RATE > 60.0 ML/MIN; Glucose 82 mg/dL (74-106); Potassium 3.7 mmol/L (3.5-5.1); SGOT/AST 41 U/L (14-36); SGPT/ALT 47 U/L (0-35); SODIUM 137 mmol/L (137-145); Total Protein 5.7 g/dL (6.3-8.2)
[2021-01-23] MEDS: Zofran 4 MG/2 ML VIAL IV PRN ×4 (08:38→21:27)
[2021-01-23] MEDS: Sodium Chloride 0.9% 1000 ML 1,000 ML IV SCH ×2 (09:17→20:18)
[2021-01-23] MEDS ORDERED: ZOFRAN ODT 4 MG PO PRN (09:33)
[2021-01-23] MEDS ORDERED: CEFDINIR 300 MG PO SCH (10:00)
[2021-01-23] MEDS: NON-FORMULARY ITEM PO SCH ×2 (10:46→21:17)
[2021-01-23] MEDS: Pepcid 20 MG PO SCH (10:47)
--- NOTE | 2021-01-23 17:43 | XRAY ---
Exam: Transabdominal pelvic ultrasound from 01/23/2021. Comparison: None. Indication: 25-year-old female complains of nausea/vomiting. Findings: Transabdominal images of the pelvis using the bladder as an acoustical window reveals an anteflexed uterus measuring 5.6 cm in length, 3.0 cm in AP depth, and 3.7 cm in width. The uterus contains an IUD within the upper uterine segment. This appears in satisfactory position. No gross uterine myometrial mass is seen. The endometrium is not well seen. The right ovary measures 3.2 cm x 2.8 cm x 1.9 cm. The left ovary measures 2.4 cm x 1.8 cm x 1.8 cm. Normal color blood flow and Doppler arterial signal is seen within both ovaries. No abnormal pelvic adnexal mass is seen. No free intraperitoneal fluid is seen. Impression: 1. Anteflexed uterus containing an IUD in unremarkable position within the uterus. The remainder of the uterus appears unremarkable. 2. Both ovaries appear unremarkable. 3. No free intraperitoneal fluid is seen within the pelvis/cul-de-sac.
--- NOTE | 2021-01-23 20:52 | XRAY ---
Exam: MRI of the abdomen without IV contrast from 01/23/2021. Comparison: CT of the abdomen and pelvis with IV contrast from 01/22/2021. Indication: 25-year-old female with elevated serum bilirubin. The patient is status post cholecystectomy. Technique: Multiplanar, multisequence MRI imaging of the abdomen was obtained without IV contrast, per protocol. Conventional MRCP was performed. Findings: The liver is normal within the limits of a non-IV contrast scan. The patient is status post cholecystectomy. MRCP demonstrates no evidence of dilated intrahepatic or extrahepatic bile ducts. Maximum diameter of the common bile duct is less than 5 mm. No evidence of an obstructing lesion or stone is seen within the common bile duct. The pancreas is normal. Pancreatic duct is not dilated. The spleen is normal. The adrenal glands are normal. The kidneys have a normal appearance without evidence of hydronephrosis. The visualized stomach and intestines are unremarkable. There is no free intraperitoneal fluid. There is no evidence of abdominal aortic aneurysm. Both the bones and soft tissues appear unremarkable. Impression: 1. Status post cholecystectomy. There is a normal appearance of the bile ducts without evidence of an obstructing lesion or stone.
[2021-01-24] MEDS: Hydromorphone 1 mg/ml Injection IV PRN ×4 (01:59→20:03)
[2021-01-24] MEDS: Sodium Chloride 0.9% 1000 ML 1,000 ML IV SCH ×2 (04:51→14:39)
[2021-01-24 05:56] LABS: Hematocrit 43.1 % (35-47); Hemoglobin 14.4 gm/dl (12.0-16.0); Mean Cell Volume 89.8 fl (78-100); Mean Corpuscular Hgb Concent. 33.4 g/dl (32-36); Mean Platelet Volume 10.2 fl (7.5-11.0); Platelet Count 186 K/mm3 (150-450); Red Cell Distribution Width 12.2 % (11.5-14.0)
[2021-01-24 06:11] LABS: ALBUMIN 3.7 g/dL (3.5-5.0); ALKALINE PHOSPHATASE 57 U/L (38-126); ANION GAP 15.4 MEQ/L (5-15); BLOOD UREA NITROGEN 12 mg/dL (7-17); CHLORIDE 102 mmol/L (98-107); Calcium 8.4 mg/dL (8.4-10.2); Carbon Dioxide 23 mmol/L (22-30); Creatinine 1 0.63 mg/dL (0.52-1.04); EST GLOMERULAR FILTRATION RATE > 60.0 ML/MIN; Glucose 51 mg/dL (74-106); Potassium 3.8 mmol/L (3.5-5.1); SGOT/AST 30 U/L (14-36); SGPT/ALT 55 U/L (0-35); SODIUM 137 mmol/L (137-145); Total Protein 6.3 g/dL (6.3-8.2)
[2021-01-24] MEDS: Pepcid 20 MG PO SCH (09:51)
[2021-01-24] MEDS: NON-FORMULARY ITEM PO SCH ×2 (09:52→22:04)
--- NOTE | 2021-01-24 09:56 | CONS ---
CONSULT DATE: 01/23/2021 HISTORY: The patient is a 25 year-old female that had nausea and vomiting, upset stomach since last . She was at [facility] briefly and told she had a bad urinary tract infection and was released. She failed to improve. She came in here. She had elevated liver function test but otherwise negative CT scan abdomen and pelvis with no acute process. She has already had her gallbladder out a year ago or so at [facility]. They do not recall who the surgeon was. They said it was not myself and they did not think it was Dr. Contreras. She does not recall who the surgeon was. She did have gallstones previously. Apparently one of my partners spoke to the emergency room physician earlier and recommended that she be transferred to . Apparently her GI doctor is there and wanted the patient have MRCP first. They asked that I see the patient in surgical consult while I was down here. LAB DATA AND TESTS: White count 8.5, hemoglobin 12.7. Her AST 41 and ALT 47, not significantly elevated but she does have total bilirubin of 3 and elevated direct component 0.6. I am not sure if they have a hepatitis panel in the work up at this time or not. Otherwise CT scan was unremarkable. PAST MEDICAL/SURGICAL HISTORY: She had IUD placed in the past. She is status post cholecystectomy at [facility] a year or so ago. She is not sure who the surgeon was. She did have gallstones prior to that. HOME MEDICATIONS: Omnicef. ALLERGIES: NKDA. FAMILY HISTORY: Negative in regards to this problem. SOCIAL HISTORY: No alcohol abuse. She is a former smoker. Marijuana use in the past per the emergency room record. REVIEW OF SYSTEMS: Fourteen systems reviewed pertinent for some nausea and vomiting. She had a little bit of lower abdominal discomfort but those are the exact same symptoms she had when she had her gallbladder attack in the past prior to cholecystectomy. No chest pain or palpitations. She wears glasses. PHYSICAL EXAMINATION: She is afebrile, vital signs stable. GENERAL: No acute distress. HEENT: Sclera trace icterus. NECK: No JVD. CHEST: Equal excursion, nonlabored breathing. CVS: Regular rate and rhythm. ABDOMEN: Very soft benign exam. She has minimal tenderness mid to lower abdomen. No rebound. No guarding. No peritoneal signs. EXTREMITIES: No cyanosis. NEURO: Alert, moving extremities grossly symmetrically. PSYCH: Appropriate mood and affect. IMPRESSION: History of cholecystectomy, history of gallstones in the past, history of elevated liver function test. There is a concern whether she could have some choledocholithiasi or sludge in her duct. Other differential could include hepatitis or other etiology. I am not sure if she has hepatitis panel pending at this time or not. She has already had her gallbladder out. She does not appear to have any need for any general surgical intervention right at this moment. She needs MRCP results that are pending and notify the GI doctor at that was consulted. If she does have a stone she will likely benefit from endoscopic ultrasound. If MRCP says she did not have a stone and her enzymes fail to improve she might need consideration of endoscopic ultrasound, ERCP or further work up. If her enzymes fail to improve, she very likely might still need GI evaluation with oil prospecting observer. They understand at this time no emergent general surgery intervention necessary. MRCP results pending. The patient will need follow up with GI at .
[2021-01-24] MEDS: Zofran 4 MG/2 ML VIAL IV PRN ×2 (11:44→20:04)
[2021-01-24 13:08] LABS: HBsAg Screen Negative (Negative); Hep A Ab, IgM Negative (Negative); Hep B Core Ab, IgM Negative (Negative)
[2021-01-24 18:03] LABS: Hep C Virus Ab <0.1 s/co ratio (0.0-0.9)
[2021-01-24 23:38] VITALS: O2SAT 99
[2021-01-25] MEDS: Zofran 4 MG/2 ML VIAL IV PRN ×2 (00:16→03:28)
[2021-01-25] MEDS: Hydromorphone 1 mg/ml Injection IV PRN ×2 (00:16→03:28)
[2021-01-25] MEDS: Sodium Chloride 0.9% 1000 ML 1,000 ML IV SCH (01:44)
[2021-01-25 03:45] VITALS: BP 116/66; PULSE 59
--- NOTE | 2021-02-05 22:32 | PCM.SSS ---
History of Present Illness - Chief Complaint Chief Complaint: Abdominal pain, Elevated Total bilirubin, possible choledoc holithiasis Date: 01/22/21 History of Present Illness: is a 25 year old female. Presented to ER Friday night with vomiting and diffuse abdominal pain, pt. admitted at another local hospital this past week and discharged day before yesterday, but notes still unable to keep anything down. Pt. was noted to have an elevated bilirubin and placed in observation for further evaluation. - Review of Systems Constitutional: No Fever, No Chills Eyes: No Symptoms Ears, Nose, & Throat: No Symptoms Respiratory: No Cough, No Short Of Breath Cardiac: No Chest Pain, No Edema, No Syncope Abdominal/Gastrointestinal: Abdominal Pain, Nausea, Vomiting, No Diarrhea Genitourinary Symptoms: No Dysuria Musculoskeletal: No Back Pain, No Neck Pain Skin: No Rash Neurological: No Dizziness, No Focal Weakness, No Sensory Changes Psychological: No Symptoms Endocrine: No Symptoms Hematologic/Lymphatic: No Symptoms Immunological/Allergic: No Symptoms Medications & Allergies Home Medications: Home Medication List Ciprofloxacin [Cipro 500 MG] 500 mg PO BIDAC #14 tablet 02/04/21 [Rx Confirmed 02/05/21] Esomeprazole Magnesium [Nexium] 1 tab PO DAILY 02/04/21 [History Confirmed 02/05/21] Promethazine HCl 25 mg [Phenergan 25 mg] 25 mg PO QID #20 tablet 02/04/21 [Rx Confirmed 02/05/21] Prochlorperazine 25 mg Supp [Compazine 25 Mgsuppository] 25 mg R Q6-8HPRN PRN #7 supp 02/05/21 [Rx] Allergies/Adverse Reactions: Allergies Allergy/AdvReac Type Severity Reaction Status Date / Time No Known Drug Allergies Allergy Verified 02/05/21 11:59 - Past Medical History Past Medical History: No Neurological History: No Pertinent History ENT History: No Pertinent History Cardiac History: No Pertinent History Respiratory History: No Pertinent History Endocrine Medical History: No Pertinent History Musculoskelatal History: No Pertinent History GI Medical History: No Pertinent History History: No Pertinent History Pyscho-Social History: No Pertinent History Reproductive Disorders: No Pertinent History - Female History Hx Last Menstrual Period: last week Are you now?: No - Past Surgical History Past Surgical History: Yes GI Surgical History: Cholecystectomy - Social History Smoking Status: Former smoker How long have you smoked: 5 years Exposure to second hand smoke: Yes Alcohol: None Drug Use: marijuana - Physical Exam General Appearance: no apparent distress, alert Neurologic Exam: alert, oriented x 3, cooperative, normal mood/affect, nml cerebellar function, nml station & gait, sensation nml, No motor deficits Eye Exam: PERRL/EOMI, eyes nml inspection Ears, Nose, Throat Exam: normal ENT inspection, pharynx normal, moist mucous membranes Neck Exam: normal inspection, non-tender, supple, full range of motion Respiratory Exam: normal breath sounds, lungs clear, No respiratory distress Cardiovascular Exam: regular rate/rhythm, normal heart sounds, normal peripheral pulses Gastrointestinal/Abdomen Exam: soft, normal bowel sounds, tenderness, No mass Back Exam: normal inspection, normal range of motion, No CVA tenderness, No vertebral tenderness Extremity Exam: normal inspection, normal range of motion, pelvis stable Skin Exam: normal color, warm, dry, No rash Lymphatic Exam: No adenopathy Assessment/Plan (1) Abdominal pain Status: Acute Code(s): R10.9 - UNSPECIFIED ABDOMINAL PAIN (2) Nausea & vomiting Status: Acute Code(s): R11.2 - NAUSEA WITH VOMITING, UNSPECIFIED (3) Total bilirubin, elevated Status: Acute Code(s): R17 - UNSPECIFIED [facility] Hospital Summary - Hospital Course Hospital Course: Pt. admitted and n/v was controlled, the patient was then tried on clear liquids and the pain and vomiting quickly returned after which the patient received an MRCP via MRI machine, which was initially read as normal, this was moved to the cloud for GI specialist at to review, upon his review he felt he may have seen something c/w a lodged stone in the cystic ducts and asked the patient be transferred to for an ERCP - Vitals & Intake/Output Vital Signs: Vital Signs Temperature 97.9 F 01/25/21 03:43 Pulse Rate 59 L 01/25/21 03:43 Respiratory Rate 16 01/25/21 03:43 Blood Pressure 116/66 01/25/21 03:43 O2 Sat by Pulse Oximetry 99 01/25/21 03:43 - Lab Result Diagrams: 01/24/21 04:48 01/24/21 04:48 - Discharge Discharge Date: 01/24/21 Disposition: DC TO OTHER HOSP Condition: Stable Prescriptions: No Action Esomeprazole Magnesium [Nexium] 1 tab PO DAILY Ciprofloxacin [Cipro 500 MG] 500 mg PO BIDAC #14 tablet Promethazine HCl 25 mg [Phenergan 25 mg] 25 mg PO QID #20 tablet Prochlorperazine 25 mg Supp [Compazine 25 Mgsuppository] 25 mg R Q6-8HP RN PRN #7 supp PRN Reason: Nausea/Vomiting Follow up with: NADIA SHEEHAN [ACTIVE STAFF] - 02/01/21 3:15 pm Forms: Ambulance Transport Record, Transfer Record [employer]
== END 2021-01-25 03:35 ==
LOC: ED 13:19 → MED SURG 22:33
PROVIDERS: ADMIT Family Medicine; ATTEND Family Medicine
DX: R10.9 Unspecified abdominal pain (principal); R11.2 Nausea with vomiting, unspecified; R94.5 Abnormal results of liver function studies; R17 Unspecified jaundice; R10.2 Pelvic and perineal pain; Z20.822 Contact with and (suspected) exposure to COVID-19; Z90.49 Acquired absence of other specified parts of digestive tract; Z79.899 Other long term (current) drug therapy
CPT/HCPCS: 36000; 36415; 74177; 74181; 76856; 80053; 80074; 80307; 81001; 82248; 83690; 84484; 84703; 85025; 85027; 96374; 96375; 96376; 99284; G0378; U0003; J1170; J2270; J2405; A9270-GY

== ENCOUNTER 2021-02-04 10:39 | Emergency (ER) | payer MEDICAID ==
[2021-02-04] MEDS ORDERED: Zofran 4 MG/2 ML VIAL IV ONE ×2 (11:08→13:33)
[2021-02-04] MEDS ORDERED: Sodium Chloride 0.9% 1000 ML 1,000 ML IV STA ×2 (11:08→13:26)
[2021-02-04] MEDS ORDERED: Sodium Chloride 0.9% 1000 ML 1,000 ML ONE ×2 (11:14→13:26)
[2021-02-04] MEDS ORDERED: Zofran 4 MG/2 ML VIAL ONE ×2 (11:14→13:41)
--- NOTE | 2021-02-04 11:17 | ERPHSYRPT ---
- History of Present Illness Time Seen by Provider: 02/04/21 11:15 Historian: patient Exam Limitations: no limitations Patient Subjective Stated Complaint: Vomiting Triage Nursing Assessment: Patient ambulated back to ED and transferred self to bed. Patient A+O X3. Patient's skin pink, warm and dry. Patient complains of vomiting since 629 and abdominal pain constant sharp pain 10/10. Patient states she was discharged from on 01/29/2021 with dx of IBS after getting an ERCP. Abdomen soft and round with BS X 4. Physician History: Patient complains of vomiting since 629 and abdominal pain constant sharp pain 10/10. Patient states she was discharged from on 01/29/2021 with dx of IBS after getting an ERCP Patient denies any fever chills urinary trouble chest pain or shortness of breath Timing/Duration: today Activities at Onset: none Severity of Pain-Max: moderate Severity of Pain-Current: moderate Modifying Factors: Improves With: nothing Associated Symptoms: denies symptoms Previous symptoms: same symptoms as today Allergies/Adverse Reactions: No Known Drug Allergies Allergy (Verified 02/04/21 11:03) Home Medications: Esomeprazole Magnesium [Nexium] 1 tab PO DAILY 02/04/21 [History] Hx Tetanus, Diphtheria Vaccination/Date Given: Yes Hx Influenza Vaccination/Date Given: Yes Hx Pneumococcal Vaccination/Date Given: No Immunizations Up to Date: Yes Travel Risk - International Travel Have you traveled outside of the country in past 3 weeks: No - Coronavirus Screening Are you exhibiting any of the following symptoms?: No Close contact with a COVID-19 positive Pt in past 14-21 Days: No - Vaccine Status Have you recieved a Covid-19 vaccination: Yes Ditch Repairer: Holvi - Vaccination Dates Date of 2cond Vaccination (if applicable): N/A - Review of Systems Constitutional: No Fever, No Chills Eyes: No Symptoms Ears, Nose, & Throat: No Symptoms Respiratory: No Cough, No Dyspnea Cardiac: No Chest Pain, No Edema, No Syncope Abdominal/Gastrointestinal: Vomiting, No Abdominal Pain, No Nausea, No Diarrhea Genitourinary Symptoms: No Dysuria Musculoskeletal: No Back Pain, No Neck Pain Skin: No Rash Neurological: No Dizziness, No Focal Weakness, No Sensory Changes Psychological: No Symptoms Endocrine: No Symptoms All Other Systems: Reviewed and Negative - Past Medical History Pertinent Past Medical History: No Neurological History: No Pertinent History ENT History: No Pertinent History Cardiac History: No Pertinent History Respiratory History: No Pertinent History Endocrine Medical History: No Pertinent History Musculoskeletal History: No Pertinent History GI Medical History: GERD History: No Pertinent History Psycho-Social History: No Pertinent History Female Reproductive Disorders: No Pertinent History - Past Surgical History Past Surgical History: Yes Gastrointestinal: Cholecystectomy - Social History Smoking Status: Former smoker How long have you smoked: 5 years Exposure to second hand smoke: No Drug Use: none Patient Lives Alone: No - Female History Hx Last Menstrual Period: two weeks ago Hx Now: No - Nursing Vital Signs Nursing Vital Signs: Initial Vital Signs Temperature 98.1 F 02/04/21 11:05 Pulse Rate 66 02/04/21 11:05 Respiratory Rate 18 02/04/21 11:05 Blood Pressure 141/77 02/04/21 11:05 O2 Sat by Pulse Oximetry 100 02/04/21 11:05 Pain Scale Pain Intensity 5 - Physical Exam General Appearance: no apparent distress, alert Eye Exam: PERRL/EOMI, eyes nml inspection Ears, Nose, Throat Exam: normal ENT inspection, pharynx normal, moist mucous membranes Neck Exam: normal inspection, non-tender, supple, full range of motion Respiratory Exam: normal breath sounds, lungs clear, No respiratory distress Cardiovascular Exam: regular rate/rhythm, normal heart sounds Gastrointestinal/Abdomen Exam: soft, No tenderness, No mass Back Exam: normal inspection, normal range of motion, No CVA tenderness, No vertebral tenderness Extremity Exam: normal inspection, normal range of motion, pelvis stable Neurologic Exam: alert, oriented x 3, cooperative, normal mood/affect, nml cerebellar function, sensation nml, No motor deficits Skin Exam: normal color, warm, dry SpO2: 100 - Course Nursing assessment & vital signs reviewed: Yes Ordered Tests: Active Orders 24 hr Category Date Time Status IV Insertion STAT Care 02/04/21 11:19 Active AMYLASE Stat Lab 02/04/21 11:15 Completed CBC W DIFF Stat Lab 02/04/21 11:15 Completed CMP Stat Lab 02/04/21 11:15 Completed LIPASE Stat Lab 02/04/21 11:15 Completed UA W/RFX UR CULTURE Stat Lab 02/04/21 11:14 Completed Urine Triage Profile Stat Lab 02/04/21 11:14 Completed Medication Summary Generic Name Dose Route Start Last Admin Trade Name Freq PRN Reason Stop Dose Admin Sodium Chloride 1,000 mls @ 999 mls/hr 02/04/21 13:26 02/04/21 13:27 Sodium Chloride 0.9% 1000 Ml IV 02/04/21 14:26 999 mls/hr .Q1H1M STA Administration Discontinued Medications Generic Name Dose Route Start Last Admin Trade Name Burton PRN Reason Stop Dose Admin Fentanyl Citrate 50 mcg 02/04/21 13:33 02/04/21 13:43 Sublimaze 100 Mcg/2 Ml IV 02/04/21 13:34 50 mcg STAT ONE Administration Fentanyl Citrate Confirm 02/04/21 13:41 Sublimaze 100 Mcg/2 Ml Administered 02/04/21 13:42 Dose 100 mcg .ROUTE .STK-MED ONE Sodium Chloride 1,000 mls @ 999 mls/hr 02/04/21 11:08 02/04/21 12:16 Sodium Chloride 0.9% 1000 Ml IV 02/04/21 12:08 Infused .Q1H1M STA Infusion Sodium Chloride Confirm 02/04/21 11:14 Sodium Chloride 0.9% 1000 Ml Administered 02/04/21 11:15 Dose 1,000 mls @ ud .ROUTE .STK-MED ONE Ceftriaxone Sodium/Dextrose 1 g in 50 mls @ 100 mls/hr 02/04/21 13:15 13:53 Rocephin 1 Gm-D5w 50 Ml Bag IV 02/04/21 13:44 Infused STAT STA Infusion Ceftriaxone Sodium/Dextrose Confirm 02/04/21 13:20 Rocephin 1 Gm-D5w 50 Ml Bag Administered 02/04/21 13:21 Dose 1 g in 50 mls @ ud IV .STK-MED ONE Sodium Chloride Confirm 02/04/21 13:26 Sodium Chloride 0.9% 1000 Ml Administered 02/04/21 13:27 Dose 1,000 mls @ ud .ROUTE .STK-MED ONE Ondansetron HCl 4 mg 02/04/21 11:08 02/04/21 11:15 Zofran 4 Mg/2 Ml Vial IV 02/04/21 11:09 4 mg STAT ONE Administration Ondansetron HCl Confirm 02/04/21 11:14 Zofran 4 Mg/2 Ml Vial Administered 02/04/21 11:15 Dose 4 mg .ROUTE .STK-MED ONE Ondansetron HCl 4 mg 02/04/21 13:33 02/04/21 13:43 Zofran 4 Mg/2 Ml Vial IV 02/04/21 13:34 4 mg STAT ONE Administration Ondansetron HCl Confirm 02/04/21 13:41 Zofran 4 Mg/2 Ml Vial Administered 02/04/21 13:42 Dose 4 mg .ROUTE .STK-MED ONE Lab/Rad Data: Laboratory Result Diagrams 02/04/21 11:15 02/04/21 11:15 Laboratory Results 02/04/21 02/04/21 02/04/21 Range/Units 11:15 11:15 11:14 WBC 14.9 H (4.0-10.5) K/mm3 RBC 4.90 (4.1-5.4) M/mm3 Hgb 15.1 (12.0-16.0) gm/dl Hct 45.2 (35-47) % MCV 92.2 (78-100) fl MCH 30.8 (26-32) pg MCHC 33.4 (32-36) g/dl RDW 13.3 (11.5-14.0) % Plt Count 289 (150-450) K/mm3 MPV 10.4 (7.5-11.0) fl Gran % 90.7 H (36.0-66.0) % Eos # (Auto) 0.04 (0-0.5) Absolute Lymphs (auto) 0.77 L (1.0-4.6) Absolute Monos (auto) 0.55 (0.0-1.3) Lymphocytes % 5.2 L (24.0-44.0) % Monocytes % 3.7 (0.0-12.0) % Eosinophils % 0.3 (0.00-5.0) % Basophils % 0.1 (0.0-0.4) % Absolute Granulocytes 13.49 H (1.4-6.9) Basophils # 0.02 (0-0.4) Sodium 138 (137-145) mmol/L Potassium 3.9 (3.5-5.1) mmol/L Chloride 108 H (98-107) mmol/L Carbon Dioxide 20 L (22-30) mmol/L Anion Gap 14.2 (5-15) MEQ/L BUN 9 (7-17) mg/dL Creatinine 0.47 L (0.52-1.04) mg/dL Estimated GFR > 60.0 ML/MIN Glucose 158 H (74-106) mg/dL Calcium 9.0 (8.4-10.2) mg/dL Total Bilirubin 1.40 H (0.2-1.3) mg/dL AST 21 (14-36) U/L ALT 22 (0-35) U/L Alkaline Phosphatase 72 (38-126) U/L Serum Total Protein 6.6 (6.3-8.2) g/dL Albumin 4.2 (3.5-5.0) g/dL Amylase 65 (30-110) U/L Lipase 55 (23-300) U/L Urine Color (YELLOW) Urine Appearance (CLEAR) Urine pH (5-6) Ur Specific Cope (1.005-1.025) Urine Protein (Negative) Urine Ketones (NEGATIVE) Urine Blood (0-5) Toan/ul Urine Nitrite (NEGATIVE) Urine Bilirubin (NEGATIVE) Urine Urobilinogen (0-1) mg/dL Ur Leukocyte Esterase (NEGATIVE) Urine WBC (Auto) (0-5) /HPF Urine RBC (Auto) (0-2) /HPF U Epithel Cells (Auto) (FEW) /HPF Urine Bacteria (Auto) (NEGATIVE) /HPF Urine Mucus (Auto) (NEGATIVE) /HPF Urine Culture Reflexed (NO) Urine Glucose (NEGATIVE) mg/dL Urine Opiates Level NEGATIVE (NEGATIVE) Ur Methadone NEGATIVE (NEGATIVE) Urine Barbiturates NEGATIVE (NEGATIVE) Ur Phencyclidine (PCP) NEGATIVE (NEGATIVE) Urine Amphetamine NEGATIVE (NEGATIVE) U Benzodiazepine Level NEGATIVE (NEGATIVE) Urine Cocaine NEGATIVE (NEGATIVE) Urine Marijuana (THC) POSITIVE (NEGATIVE) 02/04/21 Range/Units 11:14 WBC (4.0-10.5) K/mm3 RBC (4.1-5.4) M/mm3 Hgb (12.0-16.0) gm/dl Hct (35-47) % MCV (78-100) fl MCH (26-32) pg MCHC (32-36) g/dl RDW (11.5-14.0) % Plt Count (150-450) K/mm3 MPV (7.5-11.0) fl Gran % (36.0-66.0) % Eos # (Auto) (0-0.5) Absolute Lymphs (auto) (1.0-4.6) Absolute Monos (auto) (0.0-1.3) Lymphocytes % (24.0-44.0) % Monocytes % (0.0-12.0) % Eosinophils % (0.00-5.0) % Basophils % (0.0-0.4) % Absolute Granulocytes (1.4-6.9) Basophils # (0-0.4) Sodium (137-145) mmol/L Potassium (3.5-5.1) mmol/L Chloride (98-107) mmol/L Carbon Dioxide (22-30) mmol/L Anion Gap (5-15) MEQ/L BUN (7-17) mg/dL Creatinine (0.52-1.04) mg/dL Estimated GFR ML/MIN Glucose (74-106) mg/dL Calcium (8.4-10.2) mg/dL Total Bilirubin (0.2-1.3) mg/dL AST (14-36) U/L ALT (0-35) U/L Alkaline Phosphatase (38-126) U/L Serum Total Protein (6.3-8.2) g/dL Albumin (3.5-5.0) g/dL Amylase (30-110) U/L Lipase (23-300) U/L Urine Color GILL (YELLOW) Urine Appearance CLOUDY (CLEAR) Urine pH 8.0 (5-6) Ur Specific Cope 1.019 (1.005-1.025) Urine Protein 30 (Negative) Urine Ketones NEGATIVE (NEGATIVE) Urine Blood NEGATIVE (0-5) Toan/ul Urine Nitrite NEGATIVE (NEGATIVE) Urine Bilirubin NEGATIVE (NEGATIVE) Urine Urobilinogen NEGATIVE (0-1) mg/dL Ur Leukocyte Esterase NEGATIVE (NEGATIVE) Urine WBC (Auto) 0-2 (0-5) /HPF Urine RBC (Auto) 0-2 (0-2) /HPF U Epithel Cells (Auto) RARE (FEW) /HPF Urine Bacteria (Auto) NONE (NEGATIVE) /HPF Urine Mucus (Auto) SLIGHT (NEGATIVE) /HPF Urine Culture Reflexed NO (NO) Urine Glucose NEGATIVE (NEGATIVE) mg/dL Urine Opiates Level (NEGATIVE) Ur Methadone (NEGATIVE) Urine Barbiturates (NEGATIVE) Ur Phencyclidine (PCP) (NEGATIVE) Urine Amphetamine (NEGATIVE) U Benzodiazepine Level (NEGATIVE) Urine Cocaine (NEGATIVE) Urine Marijuana (THC) (NEGATIVE) - Departure Departure Disposition: Home Clinical Impression: Marijuana use, Total bilirubin, elevated Nausea & vomiting Qualifiers: Vomiting type: unspecified Vomiting Intractability: non-intractable Qualified Code(s): R11.2 - Nausea with vomiting, unspecified Abdominal pain Qualifiers: Abdominal location: periumbilical Qualified Code(s): R10.33 - Periumbilical pain Condition: Stable Critical Care Time: Yes Critical Care Time(excluding separately billable procedures): Critical 30-74 mins Referrals: DOCTOR,NO FAMILY [Primary Care Provider] - Follow Up with PCP/3 days Instructions: Nausea and Vomiting, Adult Additional Instructions: Discharge/Care Plan JOE URIAS was seen on 02/04/21 in the Emergency Room. The patient was counseled regarding Diagnosis,Lab results, Imaging studies, need for follow up and when to return to the Emergency Room. Prescriptions given: Discharge Note I have spoken with the patient and/or caregivers. I have explained the patient's condition, diagnosis and treatment plan based on the information available to me at this time. I have answered the patient's and/or caregiver's questions and addressed any concerns. The patient and/or caregivers have as good understanding of the patient's diagnosis, condition and treatment plan as can be expected at this point. The vital signs have been stable. The patient's condition is stable and appropriate for discharge from the emergency department. The patient will pursue further outpatient evaluation with the primary care physician or other designated or consulting physician as outlined in the discharge instructions. The patient and/or caregivers are agreeable to this plan of care and follow-up instructions have been explained in detail. The patient and/or caregivers have received these instruction. The patient/and or caregivers are aware that any significant change in condition or worsening of symptoms should prompt an immediate return to this or the closest emergency department or call 911. JOE URIAS was seen on 02/04/21 n the Emergency Room. At that time you were treated for an emergent condition, during your visit Laboratory, Radiology and/or other procedures may have been ordered. It is very important that you follow-up with your Primary Care Physician NO FAMILY DOCTOR within the next 24- 48 hours to review your Emergency Room visit and the final results of testing that was ordered. Some test results such as Urine Cultures, Blood Cultures, and other cultures if ordered will not be finalized for 24-48 hours. If you do not have a Primary Care Provider please call the medical records department at [phone] ext [phone] to obtain a copy of your results or you may sign into our patient portal to obtain these results by visiting us @ [email or web address] and completing the following steps: 1. Click on the Patient Portal link 2. Click the Patient Self Enrollment Link to complete the enrollment form and entering your 3. Once the enrollment form is completed you will receive an email with a temporary ID and password at the email address you provided. 4. Next choose a user name and password. Your user name must be at least 4 characters long and your password must be at least 4 characters long. 5. Choose a security question from the list and provide your answer to the question. If you already have signed into the Health Portal you may access your Health Care Information 30/12 by the following steps: 1. Login to our website @ [email or web address] 2. Enter your original user name and password. FAQS The [facility] Health Portal is an online tool that contains your Lab Results, Radiology Reports, Visit History, Discharge Instructions and Health Summary Lab and Radiology Results will not be available for 72 hours on the portal. The Portal is a secure site, passwords are encryted and URLs are re-written so they cannot be copied and pasted. You and authorized family members are the only ones who can access your Portal. Also there is a timeout feature that protects your information if you leave the Portal page open. If you have technical difficulty please use the Contact Us link on the page this will allow you to submit any questions you have regarding the Portal or you may contact the Medical Record Department at [phone] ext [phone]. Prescriptions: Ciprofloxacin [Cipro 500 MG] 500 mg PO BIDAC #14 tablet Promethazine HCl 25 mg [Phenergan 25 mg] 25 mg PO QID #20 tablet
[2021-02-04 11:27] LABS: Absolute Neutrophil Ct (ANC) 13.49 (1.4-6.9); BASOPHIL % 0.1 % (0.0-0.4); Basophil (Absolute #) 0.02 (0-0.4); Eosinophil % 0.3 % (0.00-5.0); Eosinophil (Absolute #) 0.04 (0-0.5); Hematocrit 45.2 % (35-47); Hemoglobin 15.1 gm/dl (12.0-16.0); Lymphocyte (Absolute #) 0.77 (1.0-4.6); Lymphocytes % 5.2 % (24.0-44.0); Mean Cell Volume 92.2 fl (78-100); Mean Corpuscular Hemoglobin 30.8 pg (26-32); Mean Corpuscular Hgb Concent. 33.4 g/dl (32-36); Mean Platelet Volume 10.4 fl (7.5-11.0); Monocyte (Absolute #) 0.55 (0.0-1.3); Monocytes % 3.7 % (0.0-12.0); Neutrophil % 90.7 % (36.0-66.0); Platelet Count 289 K/mm3 (150-450); Red Cell Distribution Width 13.3 % (11.5-14.0); White Blood Count 14.9 K/mm3 (4.0-10.5)
[2021-02-04 12:04] LABS: ALBUMIN 4.2 g/dL (3.5-5.0); ALKALINE PHOSPHATASE 72 U/L (38-126); AMYLASE 65 U/L (30-110); ANION GAP 14.2 MEQ/L (5-15); BLOOD UREA NITROGEN 9 mg/dL (7-17); CHLORIDE 108 mmol/L (98-107); Carbon Dioxide 20 mmol/L (22-30); Creatinine 1 0.47 mg/dL (0.52-1.04); EST GLOMERULAR FILTRATION RATE > 60.0 ML/MIN; Glucose 158 mg/dL (74-106); LIPASE 55 U/L (23-300); Potassium 3.9 mmol/L (3.5-5.1); SGOT/AST 21 U/L (14-36); SGPT/ALT 22 U/L (0-35); SODIUM 138 mmol/L (137-145); Total Protein 6.6 g/dL (6.3-8.2)
[2021-02-04 12:36] LABS: Amphetamine,Urine NEGATIVE (NEGATIVE); Barbiturate,Urine NEGATIVE (NEGATIVE); Benzodiazepine,Urine NEGATIVE (NEGATIVE); Cocaine,Urine NEGATIVE (NEGATIVE); Methadone,Urine NEGATIVE (NEGATIVE); Opiate,Urine NEGATIVE (NEGATIVE); PCP,Urine NEGATIVE (NEGATIVE); THC,Urine POSITIVE (NEGATIVE)
[2021-02-04 13:11] LABS: Appearance CLOUDY (CLEAR); Bilirubin NEGATIVE (NEGATIVE); Blood NEGATIVE Ery/ul (0-5); Epithelial Cells RARE /HPF (FEW); Glucose NEGATIVE (NEGATIVE); Ketones NEGATIVE (NEGATIVE); Leukocyte Esterase NEGATIVE (NEGATIVE); Mucus SLIGHT /HPF (NEGATIVE); Nitrite NEGATIVE (NEGATIVE); Protein,Urine Dip 30 (Negative); RBC 0-2 /HPF (0-2); Specific Gravity 1.019 (1.005-1.025); Urobilinogen NEGATIVE mg/dL (0-1); WBC 0-2 /HPF (0-5)
[2021-02-04] MEDS ORDERED: ROCEPHIN 1 Gm-D5w 50 ml Bag** 1 G/50 ML IVPB IV STA (13:15)
[2021-02-04] MEDS ORDERED: ROCEPHIN 1 Gm-D5w 50 ml Bag** 1 G/50 ML IVPB IV ONE (13:20)
[2021-02-04] MEDS ORDERED: SUBLIMAZE 100 MCG/2 ML IV ONE (13:33)
[2021-02-04] MEDS ORDERED: SUBLIMAZE 100 MCG/2 ML ONE (13:41)
[2021-02-04 14:07] VITALS: BP 124/91; PULSE 76
[2021-02-04 14:18] VITALS: O2SAT 100
== END 2021-02-04 14:35 | disposition home or self-care (01) ==
LOC: ED 10:39
DX: R11.2 Nausea with vomiting, unspecified (principal); F12.929 Cannabis use, unspecified with intoxication, unspecified; E80.6 Other disorders of bilirubin metabolism; R10.33 Periumbilical pain
CPT/HCPCS: 36000; 36415; 80053; 80307; 81001; 82150; 83690; 85025; 96360; 96365; 96374; 96375; 96376; 99284; 99291; J0696; J2405; J3010

== ENCOUNTER 2021-02-04 21:44 | Emergency (ER) | payer MEDICAID ==
--- NOTE | 2021-02-04 21:53 | ERPHSYRPT ---
- History of Present Illness Time Seen by Provider: 02/04/21 21:53 Historian: patient, family Exam Limitations: no limitations Physician History: This is a 25-year-old white female who returns to the emergency department less than 12 hours after she was seen in this emergency department today. Patient has a history of vomiting onset approximately 630 this morning. It is associated with generalized crampy abdominal pain. Patient was seen in [facility] on 01/29/2021 and was diagnosed with irritable bowel syndrome after an ERCP. Patient has a history of gastroesophageal reflux disease and is only taking Nexium for this. Patient has a history of marijuana use. She is status post cholecystectomy. The only significant abnormality seen on the work- up earlier today was that of a mildly elevated bilirubin. Patient was given a prescription for Cipro and Phenergan and instructed to follow-up with her primary care physician for further management. Her abdominal pain and vomiting has been persistent. Timing/Duration: today, worse Quality: cramping Abdominal Pain Onset Location: generalized abdomen Pain Radiation: no radiation Severity of Pain-Max: moderate Severity of Pain-Current: moderate Modifying Factors: Improves With: nothing Associated Symptoms: nausea, vomiting Previous symptoms: same symptoms as today, recently seen, recently treated Allergies/Adverse Reactions: No Known Drug Allergies Allergy (Verified 02/04/21 22:28) Home Medications: Esomeprazole Magnesium [Nexium] 1 tab PO DAILY 02/04/21 [History] Hx Tetanus, Diphtheria Vaccination/Date Given: Yes Hx Influenza Vaccination/Date Given: Yes Hx Pneumococcal Vaccination/Date Given: No Travel Risk - International Travel Have you traveled outside of the country in past 3 weeks: No - Coronavirus Screening Are you exhibiting any of the following symptoms?: No Symptoms: Vomiting/Diarrhea - Vaccine Status Have you recieved a Covid-19 vaccination: Yes 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[employer] - Vaccination Dates Date of 2cond Vaccination (if applicable): N/A - Review of Systems Constitutional: No Symptoms Eyes: No Symptoms Ears, Nose, & Throat: No Symptoms Respiratory: No Symptoms Cardiac: No Symptoms Abdominal/Gastrointestinal: Abdominal Pain, Nausea, Vomiting, No Diarrhea Genitourinary Symptoms: No Symptoms Musculoskeletal: No Symptoms Skin: No Symptoms Neurological: No Symptoms Psychological: No Symptoms Endocrine: No Symptoms Hematologic/Lymphatic: No Symptoms Immunological/Allergic: No Symptoms All Other Systems: Reviewed and Negative - Past Medical History Pertinent Past Medical History: No Neurological History: No Pertinent History ENT History: No Pertinent History Cardiac History: No Pertinent History Respiratory History: No Pertinent History Endocrine Medical History: No Pertinent History Musculoskeletal History: No Pertinent History GI Medical History: GERD History: No Pertinent History Psycho-Social History: No Pertinent History Female Reproductive Disorders: No Pertinent History - Past Surgical History Past Surgical History: Yes Gastrointestinal: Cholecystectomy - Social History Smoking Status: Former smoker How long have you smoked: 5 years Exposure to second hand smoke: No Drug Use: none Patient Lives Alone: No - Nursing Vital Signs Nursing Vital Signs: Initial Vital Signs Temperature 99.2 F 02/04/21 22:12 Pulse Rate 57 L 02/04/21 22:12 Respiratory Rate 16 02/04/21 22:12 Blood Pressure 125/73 02/04/21 22:12 O2 Sat by Pulse Oximetry 98 02/04/21 22:12 Pain Scale Pain Intensity 2 - Physical Exam General Appearance: mild distress, alert, anxiety Eye Exam: PERRL/EOMI, eyes nml inspection Ears, Nose, Throat Exam: normal ENT inspection, moist mucous membranes Neck Exam: normal inspection, non-tender, supple, full range of motion Respiratory Exam: normal breath sounds, lungs clear, airway intact, No chest tenderness, No respiratory distress Cardiovascular Exam: regular rate/rhythm, normal heart sounds, normal peripheral pulses Gastrointestinal/Abdomen Exam: soft, normal bowel sounds, tenderness (Mild diffuse), guarding, No rebound Pelvic Exam: not done Rectal Exam: not done Back Exam: normal inspection, normal range of motion, No CVA tenderness, No vertebral tenderness Extremity Exam: normal inspection, normal range of motion, pelvis stable Neurologic Exam: alert, oriented x 3, cooperative, 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, normal mood/affect, nml cerebellar function, nml station & gait, sensation nml Skin Exam: normal color, warm, dry Lymphatic Exam: No adenopathy SpO2 Interpretation: normal O2 Delivery: Room Air - Course Nursing assessment & vital signs reviewed: Yes Ordered Tests: Active Orders 24 hr Category Date Time Status Clean Catch Urine Specimen STAT Care 02/04/21 22:13 Active IV Insertion STAT Care 02/04/21 22:13 Active Oxygen-ED Only Nasal Cannula 2 lpm Care 02/04/21 23:13 Active ABDOMEN AND PELVIS W/0 CONTRAS [CT] Stat Exams 02/04/21 22:14 Taken AMYLASE Stat Lab 02/04/21 23:00 Completed CBC W DIFF Stat Lab 02/04/21 23:00 Completed CMP Stat Lab 02/04/21 23:00 Completed HCG,QUALITATIVE URINE Stat Lab 02/04/21 22:29 Completed LIPASE Stat Lab 02/04/21 23:00 Completed Lactic Acid Stat Lab 02/04/21 22:13 Completed UA W/RFX UR CULTURE Stat Lab 02/04/21 22:29 Completed Urine Triage Profile Stat Lab 02/04/21 22:29 Completed Medication Summary Discontinued Medications Generic Name Dose Route Start Last Admin Trade Name Wesleyq PRN Reason Stop Dose Admin Hydromorphone HCl 1 mg 02/04/21 22:13 02/04/21 22:58 Hydromorphone 1 Mg/Ml Injection IV 02/04/21 22:14 1 mg STAT ONE Administration Hydromorphone HCl Confirm 02/04/21 22:55 Hydromorphone 1 Mg/Ml Injection Administered 02/04/21 22:56 Dose 1 mg .ROUTE .STK-MED ONE Sodium Chloride 1,000 mls @ 999 mls/hr 02/04/21 22:13 02/04/21 22:58 Sodium Chloride 0.9% 1000 Ml IV 02/04/21 23:13 999 mls/hr .Q1H1M STA Administration Sodium Chloride Confirm 02/04/21 22:55 Sodium Chloride 0.9% 1000 Ml Administered 02/04/21 22:56 Dose 1,000 mls @ ud .ROUTE .STK-MED ONE Metronidazole 500 mg 02/05/21 00:03 Flagyl 500 Mg PO 02/05/21 00:04 STAT ONE Prochlorperazine Edisylate 10 mg 02/04/21 22:13 02/04/21 22:58 Compazine 10 Mg/2 Ml IV 02/04/21 22:14 10 mg STAT ONE Administration Prochlorperazine Edisylate Confirm 02/04/21 22:55 Compazine 10 Mg/2 Ml Administered 02/04/21 22:56 Dose 10 mg .ROUTE .STK-MED ONE Lab/Rad Data: Laboratory Result Diagrams 02/04/21 23:00 02/04/21 23:00 Laboratory Results 02/04/21 02/04/21 02/04/21 Range/Units 23:00 23:00 22:29 WBC 13.3 H (4.0-10.5) K/mm3 RBC 4.45 (4.1-5.4) M/mm3 Hgb 13.7 (12.0-16.0) gm/dl Hct 41.3 (35-47) % MCV 92.8 (78-100) fl MCH 30.8 (26-32) pg MCHC 33.2 (32-36) g/dl RDW 13.2 (11.5-14.0) % Plt Count 257 (150-450) K/mm3 MPV 10.9 (7.5-11.0) fl Gran % 91.9 H (36.0-66.0) % Eos # (Auto) 0 (0-0.5) Absolute Lymphs (auto) 0.59 L (1.0-4.6) Absolute Monos (auto) 0.48 (0.0-1.3) Lymphocytes % 4.4 L (24.0-44.0) % Monocytes % 3.6 (0.0-12.0) % Eosinophils % 0.0 (0.00-5.0) % Basophils % 0.1 (0.0-0.4) % Absolute Granulocytes 12.19 H (1.4-6.9) Basophils # 0.01 (0-0.4) Sodium 138 (137-145) mmol/L Potassium 3.7 (3.5-5.1) mmol/L Chloride 105 (98-107) mmol/L Carbon Dioxide 21 L (22-30) mmol/L Anion Gap 15.6 H (5-15) MEQ/L BUN 7 (7-17) mg/dL Creatinine 0.44 L (0.52-1.04) mg/dL Estimated GFR > 60.0 ML/MIN Glucose 132 H (74-106) mg/dL Lactic Acid (0.4-2.0) Calcium 9.1 (8.4-10.2) mg/dL Total Bilirubin 1.50 H (0.2-1.3) mg/dL AST 24 (14-36) U/L ALT 22 (0-35) U/L Alkaline Phosphatase 67 (38-126) U/L Serum Total Protein 6.9 (6.3-8.2) g/dL Albumin 4.3 (3.5-5.0) g/dL Amylase 53 (30-110) U/L Lipase 30 (23-300) U/L Urine Color (YELLOW) Urine Appearance (CLEAR) Urine pH (5-6) Ur Specific [place] (1.005-1.025) Urine Protein (Negative) Urine Ketones (NEGATIVE) Urine Blood (0-5) Toan/ul Urine Nitrite (NEGATIVE) Urine Bilirubin (NEGATIVE) Urine Urobilinogen (0-1) mg/dL Ur Leukocyte Esterase (NEGATIVE) Urine WBC (Auto) (0-5) /HPF Urine RBC (Auto) (0-2) /HPF U Hyaline Cast (Auto) (0-2) /LPF U Epithel Cells (Auto) (FEW) /HPF Urine Bacteria (Auto) (NEGATIVE) /HPF Urine Mucus (Auto) (NEGATIVE) /HPF Urine Culture Reflexed (NO) Urine Glucose (NEGATIVE) mg/dL Urine HCG, Qual NEGATIVE (Negative) Urine Opiates Level (NEGATIVE) Ur Methadone (NEGATIVE) Urine Barbiturates (NEGATIVE) Ur Phencyclidine (PCP) (NEGATIVE) Urine Amphetamine (NEGATIVE) U Benzodiazepine Level (NEGATIVE) Urine Cocaine (NEGATIVE) Urine Marijuana (THC) (NEGATIVE) 02/04/21 02/04/21 02/04/21 Range/Units 22:29 22:29 22:13 WBC (4.0-10.5) K/mm3 RBC (4.1-5.4) M/mm3 Hgb (12.0-16.0) gm/dl Hct (35-47) % MCV (78-100) fl MCH (26-32) pg MCHC (32-36) g/dl RDW (11.5-14.0) % Plt Count (150-450) K/mm3 MPV (7.5-11.0) fl Gran % (36.0-66.0) % Eos # (Auto) (0-0.5) Absolute Lymphs (auto) (1.0-4.6) Absolute Monos (auto) (0.0-1.3) Lymphocytes % (24.0-44.0) % Monocytes % (0.0-12.0) % Eosinophils % (0.00-5.0) % Basophils % (0.0-0.4) % Absolute Granulocytes (1.4-6.9) Basophils # (0-0.4) Sodium (137-145) mmol/L Potassium (3.5-5.1) mmol/L Chloride (98-107) mmol/L Carbon Dioxide (22-30) mmol/L Anion Gap (5-15) MEQ/L BUN (7-17) mg/dL Creatinine (0.52-1.04) mg/dL Estimated GFR ML/MIN Glucose (74-106) mg/dL Lactic Acid 1.1 (0.4-2.0) Calcium (8.4-10.2) mg/dL Total Bilirubin (0.2-1.3) mg/dL AST (14-36) U/L ALT (0-35) U/L Alkaline Phosphatase (38-126) U/L Serum Total Protein (6.3-8.2) g/dL Albumin (3.5-5.0) g/dL Amylase (30-110) U/L Lipase (23-300) U/L Urine Color YELLOW (YELLOW) Urine Appearance CLOUDY (CLEAR) Urine pH 5.0 (5-6) Ur Specific [place] 1.026 (1.005-1.025) Urine Protein 30 (Negative) Urine Ketones TRACE (NEGATIVE) Urine Blood NEGATIVE (0-5) Toan/ul Urine Nitrite NEGATIVE (NEGATIVE) Urine Bilirubin NEGATIVE (NEGATIVE) Urine Urobilinogen NEGATIVE (0-1) mg/dL Ur Leukocyte Esterase NEGATIVE (NEGATIVE) Urine WBC (Auto) NONE (0-5) /HPF Urine RBC (Auto) NONE (0-2) /HPF U Hyaline Cast (Auto) 0-2 (0-2) /LPF U Epithel Cells (Auto) RARE (FEW) /HPF Urine Bacteria (Auto) NONE (NEGATIVE) /HPF Urine Mucus (Auto) SLIGHT (NEGATIVE) /HPF Urine Culture Reflexed NO (NO) Urine Glucose 50 (NEGATIVE) mg/dL Urine HCG, Qual (Negative) Urine Opiates Level NEGATIVE (NEGATIVE) Ur Methadone NEGATIVE (NEGATIVE) Urine Barbiturates NEGATIVE (NEGATIVE) Ur Phencyclidine (PCP) NEGATIVE (NEGATIVE) Urine Amphetamine NEGATIVE (NEGATIVE) U Benzodiazepine Level NEGATIVE (NEGATIVE) Urine Cocaine NEGATIVE (NEGATIVE) Urine Marijuana (THC) POSITIVE (NEGATIVE) - Progress Progress: improved, pain not gone completely, re-examined Progress Note: 02/05/21 00:03 CAT scan of the abdomen and pelvis without contrast states that the majority of the colon is collapsed which is a nonspecific finding that can correlate with colitis in the appropriate clinical setting. Counseled pt/family regarding: lab results, diagnosis, need for follow-up, rad results - Departure Departure Disposition: Home Clinical Impression: Abdominal pain, Vomiting, Colitis Condition: Stable Critical Care Time: No Referrals: DOCTOR,NO FAMILY [Primary Care Provider] - Additional Instructions: Take medications as prescribed. call your primary doctor this morning for further management
[2021-02-04] MEDS ORDERED: Compazine 10 MG/2 ML IV ONE (22:13)
[2021-02-04] MEDS ORDERED: Sodium Chloride 0.9% 1000 ML 1,000 ML IV STA (22:13)
[2021-02-04] MEDS ORDERED: Hydromorphone 1 mg/ml Injection IV ONE (22:13)
[2021-02-04] MEDS ORDERED: Hydromorphone 1 mg/ml Injection ONE (22:55)
[2021-02-04] MEDS ORDERED: Compazine 10 MG/2 ML ONE (22:55)
[2021-02-04] MEDS ORDERED: Sodium Chloride 0.9% 1000 ML 1,000 ML ONE (22:55)
[2021-02-04 23:15] VITALS: O2SAT 96
[2021-02-04 23:38] LABS: Absolute Neutrophil Ct (ANC) 12.19 (1.4-6.9); BASOPHIL % 0.1 % (0.0-0.4); Basophil (Absolute #) 0.01 (0-0.4); Eosinophil (Absolute #) 0 (0-0.5); Hematocrit 41.3 % (35-47); Hemoglobin 13.7 gm/dl (12.0-16.0); Lymphocyte (Absolute #) 0.59 (1.0-4.6); Lymphocytes % 4.4 % (24.0-44.0); Mean Cell Volume 92.8 fl (78-100); Mean Corpuscular Hemoglobin 30.8 pg (26-32); Mean Corpuscular Hgb Concent. 33.2 g/dl (32-36); Mean Platelet Volume 10.9 fl (7.5-11.0); Monocyte (Absolute #) 0.48 (0.0-1.3); Monocytes % 3.6 % (0.0-12.0); Neutrophil % 91.9 % (36.0-66.0); Platelet Count 257 K/mm3 (150-450); Red Blood Count 4.45 M/mm3 (4.1-5.4); Red Cell Distribution Width 13.2 % (11.5-14.0); White Blood Count 13.3 K/mm3 (4.0-10.5)
[2021-02-04 23:48] LABS: ALBUMIN 4.3 g/dL (3.5-5.0); ALKALINE PHOSPHATASE 67 U/L (38-126); AMYLASE 53 U/L (30-110); ANION GAP 15.6 MEQ/L (5-15); BLOOD UREA NITROGEN 7 mg/dL (7-17); CHLORIDE 105 mmol/L (98-107); Calcium 9.1 mg/dL (8.4-10.2); Carbon Dioxide 21 mmol/L (22-30); Creatinine 1 0.44 mg/dL (0.52-1.04); EST GLOMERULAR FILTRATION RATE > 60.0 ML/MIN; Glucose 132 mg/dL (74-106); LIPASE 30 U/L (23-300); Potassium 3.7 mmol/L (3.5-5.1); SGOT/AST 24 U/L (14-36); SGPT/ALT 22 U/L (0-35); SODIUM 138 mmol/L (137-145); Total Protein 6.9 g/dL (6.3-8.2)
[2021-02-04 23:48] LABS: Appearance CLOUDY (CLEAR); Bilirubin NEGATIVE (NEGATIVE); Blood NEGATIVE Ery/ul (0-5); Epithelial Cells RARE /HPF (FEW); Glucose 50 mg/dL (NEGATIVE); Hyaline Casts 0-2 /LPF (0-2); Ketones TRACE (NEGATIVE); Leukocyte Esterase NEGATIVE (NEGATIVE); Mucus SLIGHT /HPF (NEGATIVE); Nitrite NEGATIVE (NEGATIVE); Protein,Urine Dip 30 (Negative); Specific Gravity 1.026 (1.005-1.025); Urobilinogen NEGATIVE mg/dL (0-1)
[2021-02-05] LABS: Amphetamine,Urine NEGATIVE (NEGATIVE); Barbiturate,Urine NEGATIVE (NEGATIVE); Benzodiazepine,Urine NEGATIVE (NEGATIVE); Cocaine,Urine NEGATIVE (NEGATIVE); Methadone,Urine NEGATIVE (NEGATIVE); Opiate,Urine NEGATIVE (NEGATIVE); PCP,Urine NEGATIVE (NEGATIVE); THC,Urine POSITIVE (NEGATIVE)
[2021-02-05] MEDS ORDERED: Flagyl 500 MG PO ONE (00:03)
[2021-02-05 00:10] VITALS: BP 99/50; PULSE 60
[2021-02-05] MEDS ORDERED: Flagyl 500 MG ONE (00:10)
[2021-02-05] MEDS ORDERED: NORCO 5/325 MG PO ONE (00:10)
[2021-02-05] MEDS ORDERED: NORCO 5/325 MG ONE (00:10)
[2021-02-05 01:08] LABS: Slide Review 1 YES
--- NOTE | 2021-02-05 08:49 | XRAY ---
Indication: Abdomen pain, nausea, vomiting, diarrhea. Multiple contiguous axial images obtained through the abdomen and pelvis without contrast. Comparison: January 22, 2021. Lung bases remain clear. Heart not enlarged. Noncontrasted stomach and bowel loops nonobstructed. Normal appendix. Again IUD in situ and cholecystectomy clips. Remaining liver, pancreas, spleen, adrenal glands, kidneys, ureters, bladder, uterus, and aorta are unremarkable for noncontrast exam. Impression: Continued negative CT abdomen/pelvis without contrast exam. Comment: Preliminary interpretation made by [facility]. No critical discrepancy.
== END 2021-02-05 00:33 | disposition home or self-care (01) ==
LOC: ED 21:44
DX: R10.9 Unspecified abdominal pain (principal); R11.2 Nausea with vomiting, unspecified; K52.9 Noninfective gastroenteritis and colitis, unspecified
CPT/HCPCS: 36000; 36415; 74176; 80053; 80307; 81001; 82150; 83605; 83690; 84703; 85025; 96374; 96375; 99284; U0003; J1170; A9270-GY

== ENCOUNTER 2021-02-05 11:41 | Emergency (ER) | payer MEDICAID ==
[2021-02-05] MEDS ORDERED: Sodium Chloride 0.9% 1000 ML 1,000 ML IV STA (12:12)
[2021-02-05] MEDS ORDERED: Compazine 10 MG/2 ML IV ONE (12:13)
[2021-02-05 12:14] VITALS: O2SAT 97
[2021-02-05] MEDS ORDERED: Sodium Chloride 0.9% 1000 ML 1,000 ML ONE (12:14)
[2021-02-05] MEDS ORDERED: Compazine 10 MG/2 ML ONE (12:14)
[2021-02-05 12:42] LABS: Absolute Neutrophil Ct (ANC) 9.02 (1.4-6.9); BASOPHIL % 0.1 % (0.0-0.4); Basophil (Absolute #) 0.01 (0-0.4); Eosinophil (Absolute #) 0 (0-0.5); Hematocrit 37.8 % (35-47); Hemoglobin 12.4 gm/dl (12.0-16.0); Lymphocyte (Absolute #) 0.85 (1.0-4.6); Lymphocytes % 8.2 % (24.0-44.0); Mean Cell Volume 93.1 fl (78-100); Mean Corpuscular Hemoglobin 30.5 pg (26-32); Mean Corpuscular Hgb Concent. 32.8 g/dl (32-36); Mean Platelet Volume 10.4 fl (7.5-11.0); Monocyte (Absolute #) 0.52 (0.0-1.3); Neutrophil % 86.7 % (36.0-66.0); Platelet Count 231 K/mm3 (150-450); Red Blood Count 4.06 M/mm3 (4.1-5.4); Red Cell Distribution Width 13.1 % (11.5-14.0); White Blood Count 10.4 K/mm3 (4.0-10.5)
[2021-02-05 12:52] LABS: ALKALINE PHOSPHATASE 60 U/L (38-126); AMYLASE 61 U/L (30-110); ANION GAP 12.4 MEQ/L (5-15); BLOOD UREA NITROGEN 8 mg/dL (7-17); CHLORIDE 105 mmol/L (98-107); Calcium 8.9 mg/dL (8.4-10.2); Carbon Dioxide 25 mmol/L (22-30); Creatinine 1 0.48 mg/dL (0.52-1.04); EST GLOMERULAR FILTRATION RATE > 60.0 ML/MIN; Glucose 102 mg/dL (74-106); LIPASE 30 U/L (23-300); Potassium 3.4 mmol/L (3.5-5.1); SGOT/AST 23 U/L (14-36); SGPT/ALT 24 U/L (0-35); SODIUM 138 mmol/L (137-145); Total Protein 6.7 g/dL (6.3-8.2)
[2021-02-05 13:01] LABS: Appearance SLIGHTLY CLOUDY (CLEAR); Bacteria RARE /HPF (NEGATIVE); Bilirubin NEGATIVE (NEGATIVE); Blood NEGATIVE Ery/ul (0-5); Epithelial Cells RARE /HPF (FEW); Glucose NEGATIVE (NEGATIVE); Ketones TRACE (NEGATIVE); Leukocyte Esterase NEGATIVE (NEGATIVE); Mucus SLIGHT /HPF (NEGATIVE); Nitrite NEGATIVE (NEGATIVE); Protein,Urine Dip NEGATIVE (Negative); RBC 0-2 /HPF (0-2); Urobilinogen NEGATIVE mg/dL (0-1)
--- NOTE | 2021-02-05 13:07 | ERPHSYRPT ---
- History of Present Illness Historian: patient Exam Limitations: no limitations Patient Subjective Stated Complaint: Vomiting Triage Nursing Assessment: Patient ambulated back to ED and transferred self to bed. Patient A+O X3. Patient's skin pink, warm and dry. Patient complains of lower abdominal pain for 3 days with N/V and diarrhea. Patient has been in ER twice in the last 24 hours. Abdomen soft and round with BS X 4. Physician History: 25 yo wf w third trip to the ER within 48 hours w N/V/D/lower abdominal cramping described as a 9 on scale. She denies hematemesis/melena/hematochezia/dysuria/hematuria. CT of ab-pelvis wo contrast demonstrated a collapsed colon last night. MRI of abdomen on 01/23/21 wo acute pathology. UDS + for marijuana but denies marijuana use for 3 wks. U-BHG was also neg. Timing/Duration: yesterday Activities at Onset: rest Quality: cramping Abdominal Pain Onset Location: suprapubic Pain Radiation: no radiation Modifying Factors: Improves With: nothing Associated Symptoms: nausea, vomiting, No back, No chest pain, No diaphoresis, No diarrhea, No fever/chills, No fatigue, No headache, No heartburn, No loss of appetite, No neck pain, No rash, No shortness of breath, No syncope, No weakness Previous symptoms: same symptoms as today Allergies/Adverse Reactions: No Known Drug Allergies Allergy (Verified 02/05/21 11:59) Home Medications: Esomeprazole Magnesium [Nexium] 1 tab PO DAILY 02/04/21 [History] Hx Tetanus, Diphtheria Vaccination/Date Given: Yes Hx Influenza Vaccination/Date Given: Yes Hx Pneumococcal Vaccination/Date Given: No Immunizations Up to Date: Yes Travel Risk - International Travel Have you traveled outside of the country in past 3 weeks: No - Coronavirus Screening Are you exhibiting any of the following symptoms?: Yes Symptoms: Vomiting/Diarrhea Close contact with a COVID-19 positive Pt in past 14-21 Days: No - Vaccine Status Have you recieved a Covid-19 vaccination: Yes 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 Dates Date of 2cond Vaccination (if applicable): N/A - Review of Systems Constitutional: No Symptoms Eyes: No Symptoms Ears, Nose, & Throat: No Symptoms Respiratory: No Symptoms Cardiac: No Symptoms Abdominal/Gastrointestinal: No Symptoms, Abdominal Pain, Nausea, Vomiting, Diarrhea Genitourinary Symptoms: No Symptoms Musculoskeletal: No Symptoms Skin: No Symptoms Neurological: No Symptoms Psychological: No Symptoms Endocrine: No Symptoms Hematologic/Lymphatic: No Symptoms Immunological/Allergic: No Symptoms - Past Medical History Pertinent Past Medical History: No Neurological History: No Pertinent History ENT History: No Pertinent History Cardiac History: No Pertinent History Respiratory History: No Pertinent History Endocrine Medical History: No Pertinent History Musculoskeletal History: No Pertinent History GI Medical History: GERD History: No Pertinent History Psycho-Social History: No Pertinent History Female Reproductive Disorders: No Pertinent History - Past Surgical History Past Surgical History: Yes Neuro Surgical History: No Pertinent History Cardiac: No Pertinent History Respiratory: No Pertinent History Gastrointestinal: No Pertinent History, Cholecystectomy Genitourinary: No Pertinent History Musculoskeletal: No Pertinent History Female Surgical History: No Pertinent History - Social History Smoking Status: Former smoker How long have you smoked: 5 years Exposure to second hand smoke: No Drug Use: none Patient Lives Alone: No - Female History Hx Last Menstrual Period: 2 weeks ago Hx Now: No - Nursing Vital Signs Nursing Vital Signs: Initial Vital Signs Temperature 98.0 F 02/05/21 12:09 Pulse Rate 83 02/05/21 12:09 Respiratory Rate 18 02/05/21 12:09 Blood Pressure 110/57 02/05/21 12:09 O2 Sat by Pulse Oximetry 97 02/05/21 12:09 Pain Scale Pain Intensity 5 WNL - Physical Exam General Appearance: no apparent distress Eye Exam: PERRL/EOMI, eyes nml inspection Ears, Nose, Throat Exam: normal ENT inspection, TMs normal, pharynx normal, moist mucous membranes Neck Exam: normal inspection, non-tender, supple, full range of motion, No meningismus Respiratory Exam: normal breath sounds, lungs clear, airway intact, No respiratory distress Cardiovascular Exam: regular rate/rhythm, normal heart sounds, normal peripheral pulses, No murmur Gastrointestinal/Abdomen Exam: soft, normal bowel sounds, tenderness (Mild supra-pubic) Back Exam: normal inspection, normal range of motion, No CVA tenderness, No vertebral tenderness Extremity Exam: normal inspection, normal range of motion Neurologic Exam: alert, oriented x 3, cooperative, 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, normal mood/affect, nml cerebellar function, nml station & gait, sensation nml, No motor deficits, No sensory deficit Skin Exam: normal color, warm, dry, No rash Lymphatic Exam: adenopathy SpO2 Interpretation: normal SpO2: 97 O2 Delivery: Room Air - Course Nursing assessment & vital signs reviewed: Yes Ordered Tests: Active Orders 24 hr Category Date Time Status IV Insertion STAT Care 02/05/21 12:12 Completed AMYLASE Stat Lab 02/05/21 12:25 Completed CBC W DIFF Stat Lab 02/05/21 12:25 Completed CMP Stat Lab 02/05/21 12:25 Completed LIPASE Stat Lab 02/05/21 12:25 Completed UA W/RFX UR CULTURE Stat Lab 02/05/21 12:14 Completed Urine Triage Profile Stat Lab 02/05/21 12:58 Completed Medication Summary Discontinued Medications Generic Name Dose Route Start Last Admin Trade Name Burton PRN Reason Stop Dose Admin Fentanyl Citrate 100 mcg 02/05/21 13:52 02/05/21 14:00 Sublimaze 100 Mcg/2 Ml IV 02/05/21 13:53 100 mcg STAT ONE Administration Fentanyl Citrate Confirm 02/05/21 13:58 Sublimaze 100 Mcg/2 Ml Administered 02/05/21 13:59 Dose 100 mcg .ROUTE .STK-MED ONE Sodium Chloride 1,000 mls @ 999 mls/hr 02/05/21 12:12 02/05/21 13:59 Sodium Chloride 0.9% 1000 Ml IV 02/05/21 13:12 Infused .Q1H1M STA Infusion Sodium Chloride Confirm 02/05/21 12:14 Sodium Chloride 0.9% 1000 Ml Administered 02/05/21 12:15 Dose 1,000 mls @ ud .ROUTE .STK-MED ONE Prochlorperazine Edisylate 10 mg 02/05/21 12:13 02/05/21 12:22 Compazine 10 Mg/2 Ml IV 02/05/21 12:14 10 mg STAT ONE Administration Prochlorperazine Edisylate Confirm 02/05/21 12:14 Compazine 10 Mg/2 Ml Administered 02/05/21 12:15 Dose 10 mg .ROUTE .STK-MED ONE Lab/Rad Data: Laboratory Result Diagrams 02/05/21 12:25 02/05/21 12:25 Laboratory Results 08/30/21 08/30/21 08/30/21 Range/Units 12:58 12:25 12:25 WBC 10.4 (4.0-10.5) K/mm3 RBC 4.06 L (4.1-5.4) M/mm3 Hgb 12.4 (12.0-16.0) gm/dl Hct 37.8 (35-47) % MCV 93.1 (78-100) fl MCH 30.5 (26-32) pg MCHC 32.8 (32-36) g/dl RDW 13.1 (11.5-14.0) % Plt Count 231 (150-450) K/mm3 MPV 10.4 (7.5-11.0) fl Gran % 86.7 H (36.0-66.0) % Eos # (Auto) 0 (0-0.5) Absolute Lymphs (auto) 0.85 L (1.0-4.6) Absolute Monos (auto) 0.52 (0.0-1.3) Lymphocytes % 8.2 L (24.0-44.0) % Monocytes % 5.0 (0.0-12.0) % Eosinophils % 0.0 (0.00-5.0) % Basophils % 0.1 (0.0-0.4) % Absolute Granulocytes 9.02 H (1.4-6.9) Basophils # 0.01 (0-0.4) Sodium 138 (137-145) mmol/L Potassium 3.4 L (3.5-5.1) mmol/L Chloride 105 (98-107) mmol/L Carbon Dioxide 25 (22-30) mmol/L Anion Gap 12.4 (5-15) MEQ/L BUN 8 (7-17) mg/dL Creatinine 0.48 L (0.52-1.04) mg/dL Estimated GFR > 60.0 ML/MIN Glucose 102 (74-106) mg/dL Calcium 8.9 (8.4-10.2) mg/dL Total Bilirubin 1.70 H (0.2-1.3) mg/dL AST 23 (14-36) U/L ALT 24 (0-35) U/L Alkaline Phosphatase 60 (38-126) U/L Serum Total Protein 6.7 (6.3-8.2) g/dL Albumin 4.0 (3.5-5.0) g/dL Amylase 61 (30-110) U/L Lipase 30 (23-300) U/L Urine Color (YELLOW) Urine Appearance (CLEAR) Urine pH (5-6) Ur Specific [place] (1.005-1.025) Urine Protein (Negative) Urine Ketones (NEGATIVE) Urine Blood (0-5) Toan/ul Urine Nitrite (NEGATIVE) Urine Bilirubin (NEGATIVE) Urine Urobilinogen (0-1) mg/dL Ur Leukocyte Esterase (NEGATIVE) Urine WBC (Auto) (0-5) /HPF Urine RBC (Auto) (0-2) /HPF U Epithel Cells (Auto) (FEW) /HPF Urine Bacteria (Auto) (NEGATIVE) /HPF Urine Mucus (Auto) (NEGATIVE) /HPF Urine Culture Reflexed (NO) Urine Glucose (NEGATIVE) mg/dL Urine Opiates Level POSITIVE (NEGATIVE) Ur Methadone NEGATIVE (NEGATIVE) Urine Barbiturates NEGATIVE (NEGATIVE) Ur Phencyclidine (PCP) NEGATIVE (NEGATIVE) Urine Amphetamine NEGATIVE (NEGATIVE) U Benzodiazepine Level NEGATIVE (NEGATIVE) Urine Cocaine NEGATIVE (NEGATIVE) Urine Marijuana (THC) POSITIVE (NEGATIVE) 02/05/21 Range/Units 12:14 WBC (4.0-10.5) K/mm3 RBC (4.1-5.4) M/mm3 Hgb (12.0-16.0) gm/dl Hct (35-47) % MCV (78-100) fl MCH (26-32) pg MCHC (32-36) g/dl RDW (11.5-14.0) % Plt Count (150-450) K/mm3 MPV (7.5-11.0) fl Gran % (36.0-66.0) % Eos # (Auto) (0-0.5) Absolute Lymphs (auto) (1.0-4.6) Absolute Monos (auto) (0.0-1.3) Lymphocytes % (24.0-44.0) % Monocytes % (0.0-12.0) % Eosinophils % (0.00-5.0) % Basophils % (0.0-0.4) % Absolute Granulocytes (1.4-6.9) Basophils # (0-0.4) Sodium (137-145) mmol/L Potassium (3.5-5.1) mmol/L Chloride (98-107) mmol/L Carbon Dioxide (22-30) mmol/L Anion Gap (5-15) MEQ/L BUN (7-17) mg/dL Creatinine (0.52-1.04) mg/dL Estimated GFR ML/MIN Glucose (74-106) mg/dL Calcium (8.4-10.2) mg/dL Total Bilirubin (0.2-1.3) mg/dL AST (14-36) U/L ALT (0-35) U/L Alkaline Phosphatase (38-126) U/L Serum Total Protein (6.3-8.2) g/dL Albumin (3.5-5.0) g/dL Amylase (30-110) U/L Lipase (23-300) U/L Urine Color YELLOW (YELLOW) Urine Appearance SLIGHTLY CLOUDY (CLEAR) Urine pH 5.0 (5-6) Ur Specific [place] 1.020 (1.005-1.025) Urine Protein NEGATIVE (Negative) Urine Ketones TRACE (NEGATIVE) Urine Blood NEGATIVE (0-5) Toan/ul Urine Nitrite NEGATIVE (NEGATIVE) Urine Bilirubin NEGATIVE (NEGATIVE) Urine Urobilinogen NEGATIVE (0-1) mg/dL Ur Leukocyte Esterase NEGATIVE (NEGATIVE) Urine WBC (Auto) 6-10 (0-5) /HPF Urine RBC (Auto) 0-2 (0-2) /HPF U Epithel Cells (Auto) RARE (FEW) /HPF Urine Bacteria (Auto) RARE (NEGATIVE) /HPF Urine Mucus (Auto) SLIGHT (NEGATIVE) /HPF Urine Culture Reflexed NO (NO) Urine Glucose NEGATIVE (NEGATIVE) mg/dL Urine Opiates Level (NEGATIVE) Ur Methadone (NEGATIVE) Urine Barbiturates (NEGATIVE) Ur Phencyclidine (PCP) (NEGATIVE) Urine Amphetamine (NEGATIVE) U Benzodiazepine Level (NEGATIVE) Urine Cocaine (NEGATIVE) Urine Marijuana (THC) (NEGATIVE) - Progress Progress: improved Progress Note: 02/05/21 13:53 1L NS bolus/10mg IV Compazine w improvement 100umg IV Fentanyl No vomiting in ER Counseled pt/family regarding: lab results, diagnosis, need for follow-up - Departure Departure Disposition: Home Clinical Impression: Nausea & vomiting, Marijuana use Condition: Stable Critical Care Time: No Referrals: LEMUEL JARAMILLO [Primary Care Provider] - Instructions: Nausea and Vomiting, Adult (DC), Marijuana Use and Addiction (DC) Additional Instructions: Fluids Rest Compazine suppositories for nausea/vomiting Follow up with your family MD in 1-2 days Return to ER for increasing pain/Temperature greater than 100.5/Inability to hold down fluids No marijuana use Prescriptions: Prochlorperazine 25 mg Supp [Compazine 25 Mgsuppository] 25 mg R [id number] PRN #7 supp PRN Reason: Nausea/Vomiting
[2021-02-05 13:22] LABS: Amphetamine,Urine NEGATIVE (NEGATIVE); Barbiturate,Urine NEGATIVE (NEGATIVE); Benzodiazepine,Urine NEGATIVE (NEGATIVE); Cocaine,Urine NEGATIVE (NEGATIVE); Methadone,Urine NEGATIVE (NEGATIVE); Opiate,Urine POSITIVE (NEGATIVE); PCP,Urine NEGATIVE (NEGATIVE); THC,Urine POSITIVE (NEGATIVE)
[2021-02-05] MEDS ORDERED: SUBLIMAZE 100 MCG/2 ML IV ONE (13:52)
[2021-02-05] MEDS ORDERED: SUBLIMAZE 100 MCG/2 ML ONE (13:58)
[2021-02-05 14:26] VITALS: BP 116/57; PULSE 80
== END 2021-02-05 14:25 | disposition home or self-care (01) ==
LOC: ED 11:41
DX: R11.2 Nausea with vomiting, unspecified (principal); F12.929 Cannabis use, unspecified with intoxication, unspecified
CPT/HCPCS: 36000; 36415; 80053; 80307; 81001; 82150; 83690; 85025; 96374; 96375; 99284; J3010